=== PATIENT | male | born 1975 | race Caucasian/White ===

== ENCOUNTER → 2019-11-17 07:15 | Outpatient (CLI) | payer OTHER, SELFPAY ==
[2019-11-17 07:56] LABS: Basophils # 0.1 K/mm3 (0-0.2); Basophils % 1.2 % (0.1-2.0); Eosinophils # 0.4 K/mm3 (0.0-0.4); Eosinophils % 4.2 % (0.1-12.0); Hematocrit 50.1 % (42.0-52.0); Hemoglobin 16.5 g/dL (14.1-18.0); Lymphocytes # 2.5 K/mm3 (0.7-4.5); Lymphocytes % 26.9 % (10-50); Mean Corpuscular Hemoglobin 28.2 pg (27.0-31.2); Mean Corpuscular Volume 85.3 fl (80-94); Mean Platelet Volume 9.2 fl (7.4-10.4); Monocytes # 0.4 K/mm3 (0.1-1.0); Neutrophils # 5.9 K/mm3 (1.8-7.8); Neutrophils % 63.6 % (37.0-80.0); Platelet Count 241 K/mm3 (142-424); Red Blood Count 5.87 M/mm3 (4.60-6.20); Red Cell Distribution Width 13.8 % (11.5-17.5); White Blood Count 9.3 K/mm3 (4.8-10.8)
[2019-11-17 10:24] LABS: Chloride 107 mmol/L (98-107); Potassium 4.6 mmoL/L (3.5-5.1); Sodium 139 mmol/L (136-145)
[2019-11-17 10:26] LABS: Alanine Aminotransferase 139 U/L (12-78); Aspartate Amino Transferase 80 U/L (17-59); Blood Urea Nitrogen 13 mg/dl (9-20); Estimated Glomerular Filt Rate 93 ml/min (>60); GFR (African American) 112 ML/MIN (>60)
[2019-11-17 10:27] LABS: Albumin/Globulin Ratio 1.3 (1.1-1.8); Alkaline Phosphatase 106 U/L (38-126); Anion Gap 12.6 mEq/L (5-15); Bilirubin,Total 0.4 mg/dl (0.2-1.3); Calcium 9.5 mg/dl (8.4-10.2); Carbon Dioxide 24 mmol/L (22.0-30.0); Cholesterol 223 mg/dl (140-200); Globulin 3.2 g/dL (1.3-3.2); Glucose 109 mg/dl (74-100); HDL Cholesterol 28 mg/dl (40-60); Total Protein,Serum 7.2 g/dl (6.3-8.2); Triglycerides 110 mg/dl (30-150); VLDL Cholesterol 22 mg/dL (0-40)
[2019-11-17 10:38] LABS: Direct LDL Cholesterol 186.51 mg/dL (100-129)
[2019-11-17 10:57] LABS: Thyroid Stimulating Hormone 3.47 uIU/mL (0.465-4.68)
[2019-11-18 17:42] LABS: Vitamin B12 728 pg/mL (232-1245)
[2019-11-18 17:49] LABS: Hep A Ab, IgM Negative (Negative); Hepatitis B Core Antibody IgM Negative (Negative); Hepatitis B Surface Antigen Negative (Negative)
[2019-11-19 10:03] LABS: Hepatitis C Antibody >11.0 s/co ratio (0.0-0.9)
== END ==
PROVIDERS: Visit Provider Internal Medicine Adolescent Medicine
DX: Z00.00 Encounter for general adult medical examination without abnormal findings (principal); R06.09 Other forms of dyspnea
CPT/HCPCS: 36415; 80053; 80061; 80074; 82607; 84443; 85025

== ENCOUNTER 2020-02-25 17:05 | Emergency (ER) | payer OTHER, SELFPAY ==
[2020-02-25 17:13] VITALS: BP 132/84; PULSE 96; RESP 20; TEMP 37.1; O2SAT 96; BMI 43.4
--- NOTE | 2020-02-25 18:02 | HMH.EDGENADL ---
ED Disposition Clinical Impression: Abscess Cellulitis Qualifiers: Site of cellulitis: trunk Site of cellulitis of trunk: groin Qualified Code(s): L03.314 - Cellulitis of groin Disposition: Home, Self-Care Condition on Discharge: Good Instructions: Cellulitis, Boil Prescriptions: Sulfamethoxazole/Trimethoprim [Bactrim DS tablet] 1 each PO BID 5 Days #10 tab Transmission Status: Received by [id number] cephALEXin [Keflex 500mg Cap] 500 mg PO Q6H 5 Days #20 cap Transmission Status: Received by [id number] Referrals: Richar Fonseca MD [Primary Care Provider] - - Critical Care Critical Care Time: No Attestation: On 02/25/20, the high probability of a clinically significant, sudden or life threatening deterioration of the following system(s) required my full and direct attention, intervention and personal management. The time I documented below is in addition to time spent performing reported procedures but includes the following listed in this critical care notation. Medical Decision Making - David Inquiry Pt receiving controlled substance: No David was queried for this patient: No Vital Signs: 02/25/20 17:13 Temperature 98.7 F Temperature Source Oral Pulse Rate [Right Radial] 96 H Respiratory Rate 20 Blood Pressure [Right Arm] 132/84 Blood Pressure Mean [Right Arm] 100 Blood Pressure Source [Right Arm] Automatic Cuff Blood Pressure Position [Right Arm] Standing 02 Sat by Pulse Oximetry 96 Oxygen Delivery Method Room Air Orders (Tests/Meds): ED MEDICATIONS Discontinued Medications Generic Name Dose Route Start Last Admin Trade Name Freq PRN Reason Stop Dose Admin Cephalexin HCl 500 mg 02/25/20 18:01 02/25/20 18:16 Cephalexin 500mg Capsule PO 02/25/20 18:02 500 mg ONCE ONE Administration Protocol Trimethoprim/Sulfamethoxazole 1 each 02/25/20 18:01 02/25/20 18:16 Bactrim Ds Tablet PO 02/25/20 18:02 1 each ONCE ONE Administration Protocol Medical Decision Narrative: In summary patient is a well-appearing 44-year-old male with a past medical history of recurrent abscesses to his inguinal area, presenting for evaluation of a repeat abscess. His vital signs are within normal limits. He is afebrile. On exam to patient's right inguinal area there is a superficial abscess no surrounding cellulitis. Is tender on palpation. It is actively draining bloody fluid. She has no systemic symptoms. Incision and drainage performed at bedside. Given oral Keflex, and Bactrim for treatment. Discharged with prescriptions for 5 days of oral Keflex, and 5 days of oral Bactrim. General Adult HPI - General Chief complaint: Skin/Abscess/Foreign Body Stated complaint: sore at belt line Time Seen by Provider: 02/25/20 17:20 Mode of Arrival: Ambulatory Limitations: No Limitations Description of Symptoms (Recalled from ER Triage Doc. by RN): PT C/O AN OPEN, DRAINING, SORE AREA IN PUBIC REGION. PT REPORTS HX OF MRSA, I&D AND PACKING. - History of Present Illness HPI narrative: 44-year-old male with a past medical history of recurrent abscesses to his groin area, who presents the emergency department for another abscess. States he noticed this yesterday, and it began draining today. He denies any recent fevers, chills, nausea, vomiting, chest pain, shortness of breath, or abdominal pain at this time. Patient only complains of pain localized to the abscess. - Related Data Previous Rx's Medication Instructions Recorded clindamycin HCL [Clindamycin HCl 300 mg PO Q6 7 Days #28 cap 06/18/19 300mg Cap] Sulfamethoxazole/Trimethoprim 1 each PO BID 5 Days #10 tab 02/25/20 [Bactrim DS tablet] cephALEXin [Keflex 500mg Cap] 500 mg PO Q6H 5 Days #20 cap 02/25/20 Allergies Allergy/AdvReac Type Severity Reaction Status Date / Time No Known Allergies Allergy Verified 09/20/18 16:47 [facility] History - Hepatitis A Screen Drug use histor
[2020-02-25 18:17] VITALS: BP 123/87; PULSE 80; RESP 20; TEMP 36.6; O2SAT 98
== END 2020-02-25 18:20 | disposition home or self-care (01) ==
PROVIDERS: Emergency Provider Emergency Medicine; PCP Internal Medicine Adolescent Medicine
DX: L02.211 Cutaneous abscess of abdominal wall (principal); F17.210 Nicotine dependence, cigarettes, uncomplicated
CPT/HCPCS: 10060; 96372; 99282

== ENCOUNTER 2020-03-22 13:38 | Emergency (ER) | payer OTHER, SELFPAY ==
[2020-03-22 13:38] VITALS: BP 149/97; PULSE 81; RESP 16; TEMP 36.9; O2SAT 98; BMI 40.6
--- NOTE | 2020-03-22 14:05 | HMH.EDWNDL ---
ED Disposition Clinical Impression: Abrasion, Abscess Disposition: Home, Self-Care Condition on Discharge: Good Instructions: DI for Wound Infection Prescriptions: clindamycin HCL [Clindamycin HCl 300mg Cap] 300 mg PO Q6 10 Days #40 cap Transmission Status: Pending to [id number] Referrals: Richar Fonseca MD [Primary Care Provider] - - Critical Care Critical Care Time: No Attestation: On 03/22/20, the high probability of a clinically significant, sudden or life threatening deterioration of the following system(s) required my full and direct attention, intervention and personal management. The time I documented below is in addition to time spent performing reported procedures but includes the following listed in this critical care notation. Medical Decision Making - Medical Records Medical records reviewed: Yes: I reviewed the patient's medical records. - David Inquiry Pt receiving controlled substance: No Vital Signs: 03/22/20 13:38 Temperature 98.4 F Temperature Source Oral Pulse Rate [Left Radial] 81 Respiratory Rate 16 Blood Pressure [Right Arm] 149/97 H Blood Pressure Mean [Right Arm] 114 Blood Pressure Position [Right Arm] Sitting 02 Sat by Pulse Oximetry 98 Oxygen Delivery Method Room Air - Lab Data Lab results reviewed: Yes: I reviewed the patient's lab results. Orders (Tests/Meds): ED MEDICATIONS Generic Name Dose Route Start Last Admin Trade Name Natalya PRN Reason Stop Dose Admin Clindamycin Phosphate 600 mg 03/22/20 13:58 03/22/20 14:00 Clindamycin 900mg/6ml Vial IM 03/22/20 15:01 600 mg ONCE ONE Administration Protocol Wound/Laceration HPI - General Chief Complaint: Wound/Laceration Stated Complaint: sore on left leg Time Seen by Provider: 03/22/20 14:05 Mode of Arrival: Ambulatory Source of Information: Patient Limitations: No Limitations Description of Symptoms (Recalled from ER Triage Doc. by RN): to ed per pvt car with c/o abscess to lt inner thigh x 3 days. pt states I stuck a pin in it this morning, but nothing came out denies fever, chills, nausea, vomiting. - History of Present Illness HPI narrative: 44-year-old male presents with a abscess on the inner part of his left thigh. He states it came up a couple of days ago and is progressively getting worse as the day has progressed. He does complain of some pain he states the pain is 4 out of 10 and sharp and pressure-like sensation. He states there are no alleviating or exacerbating factors. Patient denies any fever shakes or chills. HPIPatient denies any recent cough or shortness of breath, patient denies any sore throat or headache, patient denies any loss of taste or smell, patient denies any malaise or fatigue, patient denies any abdominal pain nausea vomiting or diarrhea. - Related Data Previous Rx's Medication Instructions Recorded clindamycin HCL [Clindamycin HCl 300 mg PO Q6 7 Days #28 cap 06/18/19 300mg Cap] Sulfamethoxazole/Trimethoprim 1 each PO BID 5 Days #10 tab 02/25/20 [Bactrim DS tablet] cephALEXin [Keflex 500mg Cap] 500 mg PO Q6H 5 Days #20 cap 02/25/20 clindamycin HCL [Clindamycin HCl 300 mg PO Q6 10 Days #40 cap 03/22/20 300mg Cap] Allergies Allergy/AdvReac Type Severity Reaction Status Date / Time No Known Allergies Allergy Verified 09/20/18 16:47 [facility] History - Hepatitis A Screen Drug use history?: No High risk sexual behaviors?: No History of sexually transmitted infection?: No Currently employed?: No Childcare worker?: No Do you have indoor plumbing?: Yes Do you have electricity?: Yes Attestation statement:: This patient has been screened for Hepatitis A risk factors. I have reviewed the patient's past medical history: Yes Medical History: Reports:: MRSA Denies:: Cancer, Diabetes Mellitus Type 1, Diabetes Mellitus Type 2 Laterality Cases: Bilateral: Myringotomy (Ear Tubes) Amputation: No Fractures: No
[2020-03-22 14:21] VITALS: BP 138/93; PULSE 90; RESP 18; TEMP 36.9; O2SAT 94
== END 2020-03-22 14:22 | disposition home or self-care (01) ==
PROVIDERS: Emergency Provider Family Medicine; PCP Internal Medicine Adolescent Medicine
DX: L02.416 Cutaneous abscess of left lower limb (principal); F17.210 Nicotine dependence, cigarettes, uncomplicated; F19.90 Other psychoactive substance use, unspecified, uncomplicated
CPT/HCPCS: 96372; 99281

== ENCOUNTER 2020-10-06 18:20 | Emergency (ER) | payer OTHER, SELFPAY ==
[2020-10-06 18:40] VITALS: BP 148/97; PULSE 98; RESP 20; TEMP 36.7; O2SAT 98; BMI 45.9
--- NOTE | 2020-10-06 19:24 | HMH.EDUTC ---
[facility] [place] Clinical Impression: Laceration Disposition: Home, Self-Care Condition on Discharge: Good Instructions: How to Care for a Laceration After Repair, DI for Laceration Repair, DI for Laceration Repair -- Simple Additional Instructions: Suture instructions: You have required stitches today. Please read the following instructions so you know how to care for them: 1. Keep wound area dry for the first 24 hours. 2 May clean gently with mild soap and water, after 48 hours to prevent crusting over suture knots. 3. You may shower if your provider gives permission but do not take a bath until the skin is healed.. 4. Never leave a wet dressing or Band-Aid on your stitches as this allows bacteria to reach the area and may cause infection. Band-aids can cause the wound to sweat and not recommended to wear for long periods of time Watch for signs of infection: Increasing redness, tenderness or warmth around the suture site Unusual swelling around the site Appearance of pus around each suture or any red streaks Fever If you develop any of the above signs or symptoms of infection, Follow up with Family Physician immediately 5. Suture removal in __10-12__days 6. Return to [facility] or follow up with family doctor for removal. This can be done by any medical provider during regular hours on Tuesday through Tuesday, by appointment. Referrals: Richar Fonseca MD [Primary Care Provider] - As needed Time of Disposition: 19:55 Medical Decision Making - David Inquiry Pt receiving controlled substance: No David was queried for this patient: No Vital Signs: 10/06/20 18:40 10/06/20 19:51 Temperature 98.1 F 98.1 F Temperature Source Oral Pulse Rate 98 H Pulse Rate [Right Brachial] 98 H Respiratory Rate 20 20 Blood Pressure 148/97 H Blood Pressure [Right Arm] 148/97 H Blood Pressure Mean [Right Arm] 114 Blood Pressure Source [Right Arm] Automatic Cuff Blood Pressure Position [Right Arm] Sitting 02 Sat by Pulse Oximetry 98 Oxygen Delivery Method Room Air Orders (Tests/Meds): ED MEDICATIONS Discontinued Medications Generic Name Dose Route Start Last Admin Trade Name Freq PRN Reason Stop Dose Admin Tetanus/Reduced Diphtheria/Acell Pertussis 0.5 ml 10/06/20 19:57 10/06/20 20:00 Tet/Diphth/Pert-Adult 0.5ml Syringe IM 10/06/20 19:58 0.5 ml .ONCE ONE Administration [facility] [place] - General Stated complaint: Cut right finger Time Seen by Provider: 10/06/20 19:24 Mode of Arrival: Ambulatory Source of Information: Patient Limitations: No Limitations Description of Symptoms (Recalled from Triage Doc. by RN): C/O LACERATION TO RIGHT RING FINGER. HE STATES HE WAS CUTTING A POTATO WITH A SLICER WITHOUT USING THE POTATO BANSAL AND CUT HIS FINGER TODAY HEENT Symptoms (Recalled from RN notes): No Resp Symptoms (Recalled from RN notes): No Skin Symptoms (Recalled from RN notes): No MS Symptoms (Recalled from RN notes): No Functional Status (Recalled from RN notes): WNL - History of Present Illness Provider Complaint: Patient states that he was using a potato slicer earlier this evening and cut the tip of his right ring finger States that he thought it would be ok but noticed it was flap like and looked like it needed stitches so he came in no active bleeding at this time unsure of last tetanus - Related Data Previous Rx's Medication Instructions Recorded clindamycin HCL [Clindamycin HCl 300 mg PO Q6 7 Days #28 cap 06/18/19 300mg Cap] Sulfamethoxazole/Trimethoprim 1 each PO BID 5 Days #10 tab 02/25/20 [Bactrim DS tablet] cephALEXin [Keflex 500mg Cap] 500 mg PO Q6H 5 Days #20 cap 02/25/20 clindamycin HCL [Clindamycin HCl 300 mg PO Q6 10 Days #40 cap 03/22/20 300mg Cap] Allergies Allergy/AdvReac Type Severity Reaction Status Date / Time No Known Allergies Allergy Verified 09/20/18 16:47 - Worker's Comp Is this a Worker's Comp case?: No [facility] History - Hepatitis A S
[2020-10-06 19:51] VITALS: BP 148/97; PULSE 98; RESP 20; TEMP 36.7; O2SAT 98
== END 2020-10-06 20:09 | disposition home or self-care (01) ==
PROVIDERS: Emergency Provider Nurse Practitioner; PCP Internal Medicine Adolescent Medicine
DX: S61.214A Laceration without foreign body of right ring finger without damage to nail, initial encounter (principal); W26.9XXA Contact with unspecified sharp object(s), initial encounter; Y92.010 Kitchen of single-family (private) house as the place of occurrence of the external cause; Z23 Encounter for immunization
CPT/HCPCS: 12001; 90471; 90715; 99202; G0463

== ENCOUNTER 2020-10-19 09:49 | Emergency (ER) | payer OTHER, SELFPAY ==
[2020-10-19 10:00] VITALS: BP 138/72; PULSE 88; RESP 18; TEMP 36.7; O2SAT 98; BMI 38.0
[2020-10-19 10:05] VITALS: BP 138/72; PULSE 88; RESP 18; TEMP 36.7; O2SAT 98
== END 2020-10-19 10:07 | disposition home or self-care (01) ==
PROVIDERS: Emergency Provider Nurse Practitioner Family; PCP Internal Medicine Adolescent Medicine
DX: S61.214D Laceration without foreign body of right ring finger without damage to nail, subsequent encounter (principal)

== ENCOUNTER 2020-11-23 18:38 | Observation (INO) | payer OTHER, SELFPAY ==
[2020-11-23 18:40] VITALS: BP 168/108; PULSE 84; RESP 20; TEMP 36.7; O2SAT 98; BMI 47.9
--- NOTE | 2020-11-23 18:44 | HMH.EDGENADL ---
ED Disposition Clinical Impression: Epigastric pain Disposition: Still a Patient Condition on Discharge: Good Referrals: Richar Fonseca MD [Primary Care Provider] - - Critical Care Critical Care Time: No Attestation: On 11/23/20, the high probability of a clinically significant, sudden or life threatening deterioration of the following system(s) required my full and direct attention, intervention and personal management. The time I documented below is in addition to time spent performing reported procedures but includes the following listed in this critical care notation. Medical Decision Making - Medical Records Medical records reviewed: Yes: I reviewed the patient's medical records. - David Inquiry Pt receiving controlled substance: No Vital Signs: 11/23/20 18:40 Temperature 98.1 F Temperature Source Oral Pulse Rate [Left Radial] 84 Respiratory Rate 20 Blood Pressure [Right Arm] 168/108 H Blood Pressure Mean [Right Arm] 128 Blood Pressure Source [Right Arm] Automatic Cuff Blood Pressure Position [Right Arm] Sitting 02 Sat by Pulse Oximetry 98 Oxygen Delivery Method Room Air - Lab Data Lab Results 11/23/20 18:50: Urine Color Yellow, Urine Appearance Clear, Urine pH 6.5, Ur Specific [place] 1.025, Urine Protein Negative, Urine Glucose (UA) Negative, Urine Ketones Negative, Urine Blood Negative, Urine Nitrate Negative, Urine Bilirubin Negative, Urine Urobilinogen 0.2, Ur Leukocyte Esterase Negative, Amorphous Sediment Trace 11/23/20 18:59: WBC 12.9 H, RBC 5.79, Hgb 16.4, Hct 49.8, MCV 86.0, MCH 28.4, MCHC 33.0, RDW 14.2, Plt Count 226, MPV 8.2, Neut % (Auto) 63.1, Lymph % (Auto) 28.3, [place] % (Auto) 4.3, Eos % (Auto) 3.1, Baso % (Auto) 1.2, Neut # (Auto) 8.1 H, Lymph # (Auto) 3.7, [place] # (Auto) 0.6, Eos # (Auto) 0.4, Baso # (Auto) 0.2 11/23/20 18:59: Sodium 141, Potassium 4.3, Chloride 107, Carbon Dioxide 28, Anion Gap 10.3, BUN 16, Creatinine 1.20, Estimated Creat Clear 79, Estimated GFR 66, Est GFR ( Amer) 80, Glucose 94, Calcium 9.7, Total Bilirubin 0.5, AST 87 H, ALT 150 H, Alkaline Phosphatase 114, Troponin I < 0.01, Total Protein 8.1, Albumin 4.4, Globulin 3.7 H, Albumin/Globulin Ratio 1.2 Result diagrams: 11/23/20 18:59 11/23/20 18:59 Orders (Tests/Meds): ED MEDICATIONS Discontinued Medications Generic Name Dose Route Start Last Admin Trade Name Natalya PRN Reason Stop Dose Admin Belladonna Alkaloids 60 ml 11/23/20 18:58 11/23/20 19:05 Gi Cocktail 60ml Udc PO 11/23/20 18:59 60 ml ONCE ONE Administration Dicyclomine HCl 20 mg 11/23/20 20:04 11/23/20 20:07 Dicyclomine 10mg Capsule PO 11/23/20 20:05 20 mg ONCE ONE Administration ORDERS Category Date Time Status Troponin I Q3H Lab 11/23/20 22:00 Ordered Troponin I Q3H Lab 11/24/20 01:00 Ordered - ECG Data Tracing #1 I reviewed this ECG and interpreted as documented below: EKG demonstrates sinus rhythm at a rate of 77 bpm; no acute ST elevation/depression; no biphasic T waves; [place] normal Medical Decision Narrative: Patient is a 45-year-old male present with epigastric pain. EKG obtained immediately upon arrival demonstrates no acute ST elevation/depression. ACS also on the differential so troponin will be obtained. Other differential diagnosis include duodenitis versus gastritis versus pancreatitis versus hepatitis. Liver function test will be obtained to ensure no flareup of patient's underlying liver disease. Lipase also ordered. Urine also obtained as pyelonephritis and cystitis on the differential. GI cocktail ordered. Patient with benign, soft abdominal exam so no CT imaging ordered at this time. Other basic lab work also obtained to ensure no renal insufficiency/metabolic derangement or hematologic derangement. White count mildly elevated 12.9. Lipase within normal limits. For set of cardiac enzyme testing unremarkable. No significant relief after GI cocktail. Bentyl ordered.
--- NOTE | 2020-11-23 18:55 | ECG_ITS ---
APPROVED REPORT Exam: Resting ECG HR:77 bpm ECG Measurements Heart Rate 77 AXES IL 144 P 44 QRSd 90 QRS 35 QT 386 T 63 QTc 436 Conclusion Normal sinus rhythm Normal ECG Electronically signed by : Richar Fonseca, 11/24/2020 06:57:43
[2020-11-23 19:04] LABS: Microscopic, Urine URINE MICROSCOPIC (MICROSCOPIC)
[2020-11-23 19:05] LABS: Basophils # 0.2 K/mm3 (0-0.2); Basophils % 1.2 % (0.1-2.0); Eosinophils # 0.4 K/mm3 (0.0-0.4); Eosinophils % 3.1 % (0.1-12.0); Hematocrit 49.8 % (42.0-52.0); Hemoglobin 16.4 g/dL (14.1-18.0); Lymphocytes # 3.7 K/mm3 (0.7-4.5); Lymphocytes % 28.3 % (10-50); Mean Corpuscular Hemoglobin 28.4 pg (27.0-31.2); Mean Platelet Volume 8.2 fl (7.4-10.4); Monocytes # 0.6 K/mm3 (0.1-1.0); Monocytes % 4.3 % (1.7-9.3); Neutrophils # 8.1 K/mm3 (1.8-7.8); Neutrophils % 63.1 % (37.0-80.0); Platelet Count 226 K/mm3 (142-424); Red Blood Count 5.79 M/mm3 (4.60-6.20); Red Cell Distribution Width 14.2 % (11.5-17.5); White Blood Count 12.9 K/mm3 (4.8-10.8)
[2020-11-23 19:10] LABS: Appearance,Urine CLEAR (Clear); Bilirubin,Urine Negative (Negative); Blood, Urine Negative (Negative); Color,Urine YELLOW (Yellow); Glucose,Urine (UA) Negative (Negative); Ketones,Urine Negative (Negative); Leukocyte Esterase,Urine Negative (Negative); Nitrate,Urine Negative (Negative); PH,Urine 6.5 (5.0-8.5); Protein,Urine Negative (Negative); Specific Gravity, Urine 1.025 (1.005-1.030); Urobilinogen,Urine 0.2 EU/dl (0.2)
[2020-11-23 19:11] LABS: Amorphous Sediment,Urine Trace /lpf
[2020-11-23 19:15] LABS: Alanine Aminotransferase 150 U/L (12-78); Albumin Level 4.4 g/dl (3.5-5.0); Albumin/Globulin Ratio 1.2 (1.1-1.8); Alkaline Phosphatase 114 U/L (38-126); Anion Gap 10.3 mEq/L (5-15); Aspartate Amino Transferase 87 U/L (17-59); Bilirubin,Total 0.5 mg/dl (0.2-1.3); Blood Urea Nitrogen 16 mg/dl (9-20); Calcium 9.7 mg/dl (8.4-10.2); Carbon Dioxide 28 mmol/L (22.0-30.0); Chloride 107 mmol/L (98-107); Creatinine Clearance Estimated 79 mL/min (50-200); Estimated Glomerular Filt Rate 66 ml/min (>60); GFR (African American) 80 ML/MIN (>60); Globulin 3.7 g/dL (1.3-3.2); Glucose 94 mg/dl (74-100); Potassium 4.3 mmoL/L (3.5-5.1); Sodium 141 mmol/L (136-145); Total Protein,Serum 8.1 g/dl (6.3-8.2)
[2020-11-23 19:27] LABS: Troponin I < 0.01 ng/ml (0.00-0.034)
--- NOTE | 2020-11-23 20:28 | CT_ITS ---
PROCEDURE: CT ABDOMEN PELVIS W CON CLINICAL INDICATION: epigastric pain COMPARISON: No exams were available for comparison TECHNIQUE: IV Contrast: 75ML Isovue 370 Oral Contrast None Axial images obtained with sagittal and coronal reformats. All CT scans at the facility use one or more dose reduction, viz: automated exposure control, ma/kV adjustment per patient size (including targeted exams where dose is matched to indication, i.e. head), or iterative reconstruction technique. FINDINGS: LOWER THORAX: No acute finding ABDOMEN & PELVIS: Unremarkable appearing liver and spleen. The gallbladder is distended measuring 12 by 4 cm. A 1.5 cm stone is present in the neck of the gallbladder. There is some minimal thickening of the gallbladder wall. These findings are suspicious for acute cholecystitis. Unremarkable appearing adrenal glands and pancreas. A 3 mm stone is present in the lower pole of the right kidney. No hydronephrosis. No ureteral calculi. Unremarkable appendix. There are few colonic diverticula but no evidence of diverticulitis. No intestinal obstruction or free air. There is a tiny umbilical hernia containing fat. No acute bony findings. There is a sclerotic focus within the left ilium medially and may be due to a bone island. There are few small inguinal lymph nodes. IMPRESSION: 1. Distended gallbladder with mild gallbladder wall thickening and a 1.5 cm stone in the neck of the gallbladder suspicious for acute cholecystitis. Ultrasound may confirm. 2. Right nephrolithiasis. Dictated by: Josh De La Vega MD 11/24/2020 06:37 Josh De La Vega MD in [place] 11/24/2020 06:37
[2020-11-23 20:58] LABS: Amylase 76 U/L (30-110); Lipase 138 U/L (23-300)
[2020-11-23 21:00] VITALS: BP 136/94; PULSE 63; RESP 17; O2SAT 99
[2020-11-23 21:03] LABS: C-Reactive Protein 11.6 mg/L (0-4)
[2020-11-23 21:17] LABS: Erythrocyte Sedimentation Rate 23 mm/hr (0-15); Procalcitonin 0.086 ng/mL (0.0-2.0)
[2020-11-24 00:37] VITALS: BP 134/88; PULSE 68; RESP 16; TEMP 36.7; O2SAT 99
--- NOTE | 2020-11-24 00:59 | PC.NURSE ---
patient up to floor via wheelchair.
[2020-11-24 01:00] VITALS: BP 149/88; PULSE 68; RESP 16; TEMP 36.5; O2SAT 100; BMI 44.4
[2020-11-24 01:26] VITALS: PULSE 68; RESP 16; O2SAT 100
[2020-11-24 03:59] VITALS: BP 138/85; PULSE 66; RESP 16; TEMP 36.6; O2SAT 97
[2020-11-24 05:02] VITALS: BMI 44.4
--- NOTE | 2020-11-24 05:08 | PC.NURSE ---
pt is AXOX4, rested well t/o shift, has not required any PRN pain medication, abdomen is tender with active bowel sounds noted, ambulating independently in room, remains room air
[2020-11-24 06:21] LABS: Alanine Aminotransferase 139 U/L (12-78); Albumin Level 4.1 g/dl (3.5-5.0); Albumin/Globulin Ratio 1.2 (1.1-1.8); Alkaline Phosphatase 118 U/L (38-126); Anion Gap 10.2 mEq/L (5-15); Aspartate Amino Transferase 86 U/L (17-59); Bilirubin,Total 0.6 mg/dl (0.2-1.3); Blood Urea Nitrogen 12 mg/dl (9-20); Calcium 9.2 mg/dl (8.4-10.2); Carbon Dioxide 23 mmol/L (22.0-30.0); Chloride 108 mmol/L (98-107); Creatinine Clearance Estimated 115 mL/min (50-200); Estimated Glomerular Filt Rate 106 ml/min (>60); GFR (African American) 128 ML/MIN (>60); Globulin 3.4 g/dL (1.3-3.2); Glucose 114 mg/dl (74-100); Potassium 4.2 mmoL/L (3.5-5.1); Sodium 137 mmol/L (136-145); Total Protein,Serum 7.5 g/dl (6.3-8.2)
[2020-11-24 06:31] LABS: Basophils # 0.1 K/mm3 (0-0.2); Basophils % 1.1 % (0.1-2.0); Eosinophils # 0.4 K/mm3 (0.0-0.4); Eosinophils % 3.6 % (0.1-12.0); Hematocrit 47.6 % (42.0-52.0); Hemoglobin 15.8 g/dL (14.1-18.0); Lymphocytes # 2.8 K/mm3 (0.7-4.5); Lymphocytes % 26.6 % (10-50); Mean Corpuscular HGB Conc 33.2 g/dL (31.8-35.4); Mean Corpuscular Hemoglobin 28.2 pg (27.0-31.2); Mean Corpuscular Volume 85.1 fl (80-94); Mean Platelet Volume 8.5 fl (7.4-10.4); Monocytes # 0.5 K/mm3 (0.1-1.0); Monocytes % 5.1 % (1.7-9.3); Neutrophils # 6.7 K/mm3 (1.8-7.8); Neutrophils % 63.6 % (37.0-80.0); Platelet Count 216 K/mm3 (142-424); Red Blood Count 5.59 M/mm3 (4.60-6.20); Red Cell Distribution Width 14.4 % (11.5-17.5); White Blood Count 10.5 K/mm3 (4.8-10.8)
--- NOTE | 2020-11-24 07:16 | HMH.PHAVTE ---
[facility] Pharmacy VTE Monitoring - Patient Demographics Admission date: 11/23/20 Report Date: 11/24/20 Time: 07:16 Allergies/Adverse Reactions: Patient Allergies No Known Allergies Allergy (Verified 11/24/20 01:04) Height: 1.75 m Weight: 136.078 kg Patient Problems: Current Active Problems Epigastric pain (Acute) - VTE Risk Labs: VTE Related Lab Results Hgb 15.8 g/dL (14.1-18.0) 11/24/20 05:54 Hct 47.6 % (42.0-52.0) 11/24/20 05:54 Plt Count 216 K/mm3 (142-424) 11/24/20 05:54 BUN 12 mg/dl (9-20) 11/24/20 05:54 Creatinine 0.80 mg/dl (0.66-1.25) D 11/24/20 05:54 Estimated Creat Clear 115 mL/min (50-200) 11/24/20 05:54 Was VTE Risk Assessment Performed: Yes VTE Score: 4 VTE Risk Level: Low Risk Clinical Trial Participant: No - Prophylaxis VTE Prophylaxis Ordered?: Yes Types of VTE Prophylaxis: TEDS Knee High
[2020-11-24 08:00] VITALS: BP 136/76; PULSE 66; RESP 18; TEMP 36.9; O2SAT 100
--- NOTE | 2020-11-24 08:00 | US_ITS ---
PROCEDURE: US GALLBLADDER CLINICAL INDICATION: abd pain/abn ct Epigastric, upper quadrant pain COMPARISON: CT CT ABDOMEN PELVIS W CON from 11/23/2020 FINDINGS: Pancreas: Unremarkable/Not well seen Liver: Unremarkable. There is appropriate direction of blood flow within a non dilated portal vein. Right kidney: Unremarkable appearing. No hydronephrosis. Gallbladder: There is a 2 cm stone in neck gallbladder with mild distention of the gallbladder 4 cm. No pericholecystic fluid, or biliary dilatation is evident. The common bile duct is 5 mm. Gallbladder wall is slightly thickened at 5 mm. IMPRESSION: Cholelithiasis with distended gallbladder and mild gallbladder wall thickening. Dictated by: Josh De La Vega MD 11/24/2020 10:03 Josh De La Vega MD in [facility] 11/24/2020 10:03
--- NOTE | 2020-11-24 08:17 | HMH.HP ---
*Admission Date: 11/23/20 *Chief complaint: Right upper quadrant pain *History of present illness: 45-year-old white male with obesity but otherwise minimal medical history who presented to the emergency department with right upper quadrant pain after eating. ER work-up with minimally elevated lipase but otherwise unremarkable except for a CT scan showing gallbladder neck stone. Admitted to hospital for pain control, n.p.o. status and surgical consultation. [facility] History I have reviewed the patient's past medical history: Yes Medical History: Reports:: MRSA Denies:: Cancer, Diabetes Mellitus Type 1, Diabetes Mellitus Type 2 *Have you ever received a pneumonia vaccine?: No *Have you received a flu vaccine this season?: No Laterality Cases: Bilateral: Myringotomy (Ear Tubes) Amputation: No Fractures: No - *Social History Last grade of school completed: GED Smoking Status: Current every day smoker Tobacco Type: cigarettes # Packs/Day (cigarettes): 1 Alcohol Intake: never Substance Use Type: marijuana, crack/cocaine, heroin, opiates, methamphetamine *Occupational Status:: employed Housing: house Household Members: other *Travel in the last 8 weeks: None Family Hx:: Cancer, Diabetes, Heart Attack, Hypertension, Alcoholism Review of Systems - Review of Systems Review of systems:: pertinent systems reviewed and negative unless documented below Meds Home Medications Medication Instructions Recorded Confirmed Type No Known Home Medications 11/23/20 11/24/20 History Allergies Allergy/AdvReac Type Severity Reaction Status Date / Time No Known Allergies Allergy Verified 11/24/20 01:04 Exam Vital signs and Labs for Last 24 Hours: Temp Pulse Resp BP Pulse Ox 98.4 F 66 18 136/76 100 11/24/20 08:00 11/24/20 08:00 11/24/20 08:00 11/24/20 08:00 11/24/20 08:00 Laboratory Results - last 24 hr 11/23/20 18:50: Urine Color Yellow, Urine Appearance Clear, Urine pH 6.5, Ur Specific [place] 1.025, Urine Protein Negative, Urine Glucose (UA) Negative, Urine Ketones Negative, Urine Blood Negative, Urine Nitrate Negative, Urine Bilirubin Negative, Urine Urobilinogen 0.2, Ur Leukocyte Esterase Negative, Amorphous Sediment Trace 11/23/20 18:59: WBC 12.9 H, RBC 5.79, Hgb 16.4, Hct 49.8, MCV 86.0, MCH 28.4, MCHC 33.0, RDW 14.2, Plt Count 226, MPV 8.2, Neut % (Auto) 63.1, Lymph % (Auto) 28.3, [place] % (Auto) 4.3, Eos % (Auto) 3.1, Baso % (Auto) 1.2, Neut # (Auto) 8.1 H, Lymph # (Auto) 3.7, [place] # (Auto) 0.6, Eos # (Auto) 0.4, Baso # (Auto) 0.2 11/23/20 18:59: Sodium 141, Potassium 4.3, Chloride 107, Carbon Dioxide 28, Anion Gap 10.3, BUN 16, Creatinine 1.20, Estimated Creat Clear 79, Estimated GFR 66, Est GFR ( Amer) 80, Glucose 94, Calcium 9.7, Total Bilirubin 0.5, AST 87 H, ALT 150 H, Alkaline Phosphatase 114, Troponin I < 0.01, Total Protein 8.1, Albumin 4.4, Globulin 3.7 H, Albumin/Globulin Ratio 1.2 11/23/20 18:59: C-Reactive Protein 11.6 H, Amylase 76, Lipase 138, Procalcitonin 0.086 11/23/20 18:59: ESR 23 H 11/24/20 05:54: WBC 10.5, RBC 5.59, Hgb 15.8, Hct 47.6, MCV 85.1, MCH 28.2, MCHC 33.2, RDW 14.4, Plt Count 216, MPV 8.5, Neut % (Auto) 63.6, Lymph % (Auto) 26.6, [place] % (Auto) 5.1, Eos % (Auto) 3.6, Baso % (Auto) 1.1, Neut # (Auto) 6.7, Lymph # (Auto) 2.8, [place] # (Auto) 0.5, Eos # (Auto) 0.4, Baso # (Auto) 0.1 11/24/20 05:54: Sodium 137, Potassium 4.2, Chloride 108 H, Carbon Dioxide 23, Anion Gap 10.2, BUN 12, Creatinine 0.80 D, Estimated Creat Clear 115, Estimated GFR 106, Est GFR ( Amer) 128 D, Glucose 114 H D, Calcium 9.2, Total Bilirubin 0.6, AST 86 H, ALT 139 H, Alkaline Phosphatase 118, Total Protein 7.5, Albumin 4.1, Globulin 3.4 H, Albumin/Globulin Ratio 1.2 I & O for Last 24 hours: Intake & Output 11/21/20 11/22/20 11/23/20 11/24/20 11:59 11:59 11:59 11:59 Intake Total 383 / 383 Balance 383 / 383 Weight 300 lb Microbiology Reports for the Last 24 Hours: Microbiology 11/23/20
--- NOTE | 2020-11-24 08:33 | HMH.GSCON ---
*Admission Date: 11/23/20 *Reason for consult:: Gallbladder *History of present illness: Patient is a 45-year-old male with known diagnosis of hepatitis C secondary to previous IV drug use. He states that he has been clean for over 2 years. He was in his usual state of health until a couple of days ago when he developed acute onset of epigastric pain. This became more severe yesterday and he presented to the emergency department yesterday evening. He underwent evaluation which included CT scan revealing findings of gallbladder wall thickening with stone in the neck of the gallbladder. He does have somewhat elevated transaminases which is consistent with his baseline. His symptoms have improved this morning. Review of Systems - Review of Systems Review of systems:: pertinent systems reviewed and negative unless documented below [facility] History I have reviewed the patient's past medical history: Yes Medical History: Reports:: MRSA Denies:: Cancer, Diabetes Mellitus Type 1, Diabetes Mellitus Type 2 *Have you ever received a pneumonia vaccine?: No *Have you received a flu vaccine this season?: No Laterality Cases: Bilateral: Myringotomy (Ear Tubes) Amputation: No Fractures: No - *Social History Last grade of school completed: GED Smoking Status: Current every day smoker Tobacco Type: cigarettes # Packs/Day (cigarettes): 1 Alcohol Intake: never Substance Use Type: marijuana, crack/cocaine, heroin, opiates, methamphetamine *Occupational Status:: employed Housing: house Household Members: other *Travel in the last 8 weeks: None Family Hx:: Cancer, Diabetes, Heart Attack, Hypertension, Alcoholism Meds Home Medications Medication Instructions Recorded Confirmed Type No Known Home Medications 11/23/20 11/24/20 History Allergies Allergy/AdvReac Type Severity Reaction Status Date / Time No Known Allergies Allergy Verified 11/24/20 01:04 Exam Vital signs and Labs for Last 24 Hours: Temp Pulse Resp BP Pulse Ox 98.4 F 66 18 136/76 100 11/24/20 08:00 11/24/20 08:00 11/24/20 08:00 11/24/20 08:00 11/24/20 08:00 Laboratory Results - last 24 hr 11/23/20 18:50: Urine Color Yellow, Urine Appearance Clear, Urine pH 6.5, Ur Specific [place] 1.025, Urine Protein Negative, Urine Glucose (UA) Negative, Urine Ketones Negative, Urine Blood Negative, Urine Nitrate Negative, Urine Bilirubin Negative, Urine Urobilinogen 0.2, Ur Leukocyte Esterase Negative, Amorphous Sediment Trace 11/23/20 18:59: WBC 12.9 H, RBC 5.79, Hgb 16.4, Hct 49.8, MCV 86.0, MCH 28.4, MCHC 33.0, RDW 14.2, Plt Count 226, MPV 8.2, Neut % (Auto) 63.1, Lymph % (Auto) 28.3, Stone % (Auto) 4.3, Eos % (Auto) 3.1, Baso % (Auto) 1.2, Neut # (Auto) 8.1 H, Lymph # (Auto) 3.7, Stone # (Auto) 0.6, Eos # (Auto) 0.4, Baso # (Auto) 0.2 11/23/20 18:59: Sodium 141, Potassium 4.3, Chloride 107, Carbon Dioxide 28, Anion Gap 10.3, BUN 16, Creatinine 1.20, Estimated Creat Clear 79, Estimated GFR 66, Est GFR ( Amer) 80, Glucose 94, Calcium 9.7, Total Bilirubin 0.5, AST 87 H, ALT 150 H, Alkaline Phosphatase 114, Troponin I < 0.01, Total Protein 8.1, Albumin 4.4, Globulin 3.7 H, Albumin/Globulin Ratio 1.2 11/23/20 18:59: C-Reactive Protein 11.6 H, Amylase 76, Lipase 138, Procalcitonin 0.086 11/23/20 18:59: ESR 23 H 11/24/20 05:54: WBC 10.5, RBC 5.59, Hgb 15.8, Hct 47.6, MCV 85.1, MCH 28.2, MCHC 33.2, RDW 14.4, Plt Count 216, MPV 8.5, Neut % (Auto) 63.6, Lymph % (Auto) 26.6, Stone % (Auto) 5.1, Eos % (Auto) 3.6, Baso % (Auto) 1.1, Neut # (Auto) 6.7, Lymph # (Auto) 2.8, Stone # (Auto) 0.5, Eos # (Auto) 0.4, Baso # (Auto) 0.1 11/24/20 05:54: Sodium 137, Potassium 4.2, Chloride 108 H, Carbon Dioxide 23, Anion Gap 10.2, BUN 12, Creatinine 0.80 D, Estimated Creat Clear 115, Estimated GFR 106, Est GFR ( Amer) 128 D, Glucose 114 H D, Calcium 9.2, Total Bilirubin 0.6, AST 86 H, ALT 139 H, Alkaline Phosphatase 118, Total Protein 7.5, Albumin 4.1, Globulin 3.4 H, Albumin/Globulin Ratio
[2020-11-24 09:05] LABS: INR 0.94 (0.9-1.1); Prothrombin Time 11.1 seconds (9.4-11.8)
--- NOTE | 2020-11-24 12:03 | HMH.GSPN ---
Subjective Patient reports: feels better Narrative: Patient's gallbladder ultrasound revealed gallstone in the neck of the gallbladder. He is currently asymptomatic. Progress Note: A&P (1) Epigastric pain Status: Acute Assessment and Plan for All Diagnoses:: Likely had a acute biliary colic. I discussed the options with the patient. He had been tentatively scheduled for surgery for tomorrow. He wishes to be discharged and return as an outpatient for surgery tomorrow. This is to be arranged. Exam Vital signs and Labs for Last 24 Hours: Temp Pulse Resp BP Pulse Ox 98.4 F 66 18 136/76 100 11/24/20 08:00 11/24/20 08:00 11/24/20 08:00 11/24/20 08:00 11/24/20 08:00 Laboratory Results - last 24 hr 11/23/20 18:50: Urine Color Yellow, Urine Appearance Clear, Urine pH 6.5, Ur Specific [place] 1.025, Urine Protein Negative, Urine Glucose (UA) Negative, Urine Ketones Negative, Urine Blood Negative, Urine Nitrate Negative, Urine Bilirubin Negative, Urine Urobilinogen 0.2, Ur Leukocyte Esterase Negative, Amorphous Sediment Trace 11/23/20 18:59: WBC 12.9 H, RBC 5.79, Hgb 16.4, Hct 49.8, MCV 86.0, MCH 28.4, MCHC 33.0, RDW 14.2, Plt Count 226, MPV 8.2, Neut % (Auto) 63.1, Lymph % (Auto) 28.3, [place] % (Auto) 4.3, Eos % (Auto) 3.1, Baso % (Auto) 1.2, Neut # (Auto) 8.1 H, Lymph # (Auto) 3.7, [place] # (Auto) 0.6, Eos # (Auto) 0.4, Baso # (Auto) 0.2 11/23/20 18:59: Sodium 141, Potassium 4.3, Chloride 107, Carbon Dioxide 28, Anion Gap 10.3, BUN 16, Creatinine 1.20, Estimated Creat Clear 79, Estimated GFR 66, Est GFR ( Amer) 80, Glucose 94, Calcium 9.7, Total Bilirubin 0.5, AST 87 H, ALT 150 H, Alkaline Phosphatase 114, Troponin I < 0.01, Total Protein 8.1, Albumin 4.4, Globulin 3.7 H, Albumin/Globulin Ratio 1.2 11/23/20 18:59: C-Reactive Protein 11.6 H, Amylase 76, Lipase 138, Procalcitonin 0.086 11/23/20 18:59: ESR 23 H 11/24/20 05:54: WBC 10.5, RBC 5.59, Hgb 15.8, Hct 47.6, MCV 85.1, MCH 28.2, MCHC 33.2, RDW 14.4, Plt Count 216, MPV 8.5, Neut % (Auto) 63.6, Lymph % (Auto) 26.6, [place] % (Auto) 5.1, Eos % (Auto) 3.6, Baso % (Auto) 1.1, Neut # (Auto) 6.7, Lymph # (Auto) 2.8, [place] # (Auto) 0.5, Eos # (Auto) 0.4, Baso # (Auto) 0.1 11/24/20 05:54: Sodium 137, Potassium 4.2, Chloride 108 H, Carbon Dioxide 23, Anion Gap 10.2, BUN 12, Creatinine 0.80 D, Estimated Creat Clear 115, Estimated GFR 106, Est GFR ( Amer) 128 D, Glucose 114 H D, Calcium 9.2, Total Bilirubin 0.6, AST 86 H, ALT 139 H, Alkaline Phosphatase 118, Total Protein 7.5, Albumin 4.1, Globulin 3.4 H, Albumin/Globulin Ratio 1.2 11/24/20 08:20: PT 11.1, INR 0.94 I & O for Last 24 hours: Intake & Output 11/22/20 11/23/20 11/24/20 11/25/20 11:59 11:59 11:59 11:59 Intake Total 383 / 383 Balance 383 / 383 Weight 300 lb Microbiology Reports for the Last 24 Hours: Microbiology 11/23/20 21:50 Nasopharyngeal Coronavirus COVID-19 PCR - Final
--- NOTE | 2020-11-24 12:55 | PC.NURSE ---
PT DEMANDED TO LEAVE THE FLOOR SO HE COULD GO OUTSIDE AND FOR THIS NURSE TO REMOVE HIS IV. PT STATED THAT HE WOULD COME BACK TO THE FLOOR. OFF UNIT CONSENT SIGNED AND PLACED ON CHART. SPOKE TO DR. CONTEH WHO IS AWARE.
--- NOTE | 2020-11-25 06:36 | HMH.DCSUM ---
General - General Admission date:: 11/24/20 Discharge date: 11/24/20 HPI HPI: 45-year-old white male with obesity but otherwise minimal medical history who presented to the emergency department with right upper quadrant pain after eating. ER work-up with minimally elevated lipase but otherwise unremarkable except for a CT scan showing gallbladder neck stone. Admitted to hospital for pain control, n.p.o. status and surgical consultation. Hospital Course Hospital Course: Admiktted... US also showed stone in neck of gallbladder... pain controlled with diet restriction and pain rx. Surgery consulted. Recommended lap felicia - set up for 11/25/2020 - patient wished to be d'cd home and return in am... clear liquid diet was recommneded till next day. Objective Vital signs: Temp Pulse Resp BP Pulse Ox 98.4 F 66 18 136/76 100 11/24/20 08:00 11/24/20 08:00 11/24/20 08:00 11/24/20 08:00 11/24/20 08:00 no acute distress - *Routine HEENT Exam Head: Present: normocephalic Eye: Present: EOMI, PERRL ENT: Present: mucous membranes moist - *Routine Neck Exam Present: supple - *Routine Respiratory Exam Present: CTA bilaterally - *Routine Cardiovascular Exam Present: RRR - *Routine Abdominal Exam Present: soft, normoactive bowel sounds, tenderness Comments: Improved over admit - *Routine Extremities Exam Absent: cyanosis, clubbing, edema - *Routine Skin Exam Present: warm. Absent: rash - Detailed Eye Exam Eyelids: Bilateral normal inspection Results Labs on day of discharge: Labs from last 24 hours 11/24/20 11/24/20 11/24/20 08:20 05:54 05:54 WBC 10.5 RBC 5.59 Hgb 15.8 Hct 47.6 MCV 85.1 MCH 28.2 MCHC 33.2 RDW 14.4 Plt Count 216 MPV 8.5 Neut % (Auto) 63.6 Lymph % (Auto) 26.6 [place] % (Auto) 5.1 Eos % (Auto) 3.6 Baso % (Auto) 1.1 Neut # (Auto) 6.7 Lymph # (Auto) 2.8 [place] # (Auto) 0.5 Eos # (Auto) 0.4 Baso # (Auto) 0.1 PT 11.1 INR 0.94 Sodium 137 Potassium 4.2 Chloride 108 H Carbon Dioxide 23 Anion Gap 10.2 BUN 12 Creatinine 0.80 D Estimated Creat Clear 115 Estimated GFR 106 Est GFR ( Amer) 128 D Glucose 114 H D Calcium 9.2 Total Bilirubin 0.6 AST 86 H ALT 139 H Alkaline Phosphatase 118 Total Protein 7.5 Albumin 4.1 Globulin 3.4 H Albumin/Globulin Ratio 1.2 DS: Diagnosis - Discharge Diagnosis (1) Epigastric pain Status: Acute (2) Cholecystitis, acute with cholelithiasis Status: Acute Discharge Plan - Patient Discharge Instructions ACTIVITY: Continue current activity DIET: continue same diet Patient Instructions: Clear Liquid Diet, DI for Epigastric Pain - Follow up Plan Follow up with: Sb Gray MD [Staff Physician] - (surgery is scheduled for 1:00 11/25/2020. please plan to arrive by 11:30 for per-op. nothing to eat or drink after midnight 11/25/2020) Disposition: Home, Self-Long Term Medications: Home Medications Medication Instructions Recorded Confirmed Type No Known Home Medications 11/23/20 11/24/20 History Prescriptions/Medication Reconciliation: No Action No Known Home Medications - Problem Reconciliation Problems Reviewed?: Yes
== END 2020-11-24 13:30 | disposition home or self-care (01) ==
LOC: ER 20:29 → 2ND 21:59
PROVIDERS: Surgery; Admitting Provider Emergency Medicine; Emergency Provider Emergency Medicine; PCP Internal Medicine Adolescent Medicine; Visit Provider Internal Medicine Adolescent Medicine
DX: K80.10 Calculus of gallbladder with chronic cholecystitis without obstruction (principal)
CPT/HCPCS: 36415; 74177; 76705; 80053; 81001; 82150; 83690; 84145; 84484; 85025; 85610; 85651; 86140; 93005; 96365; 99284; G0378; Q9967; U0003

== ENCOUNTER 2020-11-25 11:09 | Day surgery (SDC) | payer OTHER, SELFPAY ==
[2020-11-25] VITALS (13 sets, daily range): BP systolic 109–166; BP diastolic 64–90; PULSE 70–87; RESP 14–18; TEMP 36.3–43; O2SAT 95–99; BMI 46.6
--- NOTE | 2020-11-25 12:18 | P.PN_ITS ---
[facility] Anesthesia Checklist - Patient Identification Patient Identification: Arm Band - Structural Data Admitted From: Home Planned Operative Procedure/s: Laparoscopic Cholecystectomy Consent for Planned Operative Procedure(s) Verified: Yes Verified Documents: Surgical Consent, History and Physical - Additional verifications Anesthesia Reactions: No Hx Blood Transfusions: No Blood Transfusion Reaction: No - Cardiovascular Assessment Heart Sounds: S1 & S2 Pulse Strength: Baseline Pulse Rhythm: Regular - Airway Assessment C-Spine Mobility Assessed: Yes TMJ Mobility Assessed: Yes Dentition: Poor Dentition - Neurological Assessment Level of Consciousness: Awake - Anesthesia Plan Anesthesia Risk discussed: Yes Anesthesia Plan: Verified ASA Class: II Anesthesia Type: General [facility] History I have reviewed the patient's past medical history: Yes Medical History: Denies:: Cancer, Diabetes Mellitus Type 1, Diabetes Mellitus Type 2, Internal Pacemaker, MRSA, Seizures *Have you ever received a pneumonia vaccine?: No *Have you received a flu vaccine this season?: No Other Medical History: Denies: Blood Transfusion Reaction Anesthesia experience/problems:: None Laterality Cases: Bilateral: Myringotomy (Ear Tubes) Other Surgeries: No: Pacemaker Amputation: No Fractures: No - *Social History Last grade of school completed: GED Smoking Status: Current every day smoker Tobacco Type: cigarettes # Packs/Day (cigarettes): 1 Alcohol Intake: never Substance Use Type: marijuana, crack/cocaine, heroin, opiates, methamphetamine *Occupational Status:: employed Housing: house Household Members: other *Travel in the last 8 weeks: None Family Hx:: No significant family history
--- NOTE | 2020-11-25 15:27 | HMH.OPNOTE ---
Date of procedure: 11/25/20 Pre-op Diagnosis:: Symptomatic gallstones, cholecystitis Post-op Diagnosis:: Same Procedure performed:: Laparoscopic cholecystectomy Surgeon:: Sb Gray MD SOLDER SPRAYER:: Other Anesthesia: CAITLIN Estimated blood loss (mL): 20 Clinical Note:: Patient is a 45-year-old male with known diagnosis of hepatitis C secondary to previous IV drug use. He states that he has been clean for over 2 years. He was in his usual state of health until a couple of days ago when he developed acute onset of epigastric pain. This became more severe on 11/23/2020 and he presented to the emergency department that evening. He underwent evaluation which included CT scan revealing findings of gallbladder wall thickening with stone in the neck of the gallbladder. He does have somewhat elevated transaminases which is consistent with his baseline. He was admitted to medicine service with surgical consultation yesterday morning. His symptoms improved dramatically. Options were discussed with the patient. Plan was made for discharge with cholecystectomy as an outpatient the following day. Operative findings:: He had some hepatomegaly and significant amount of thickened omentum. Gallbladder was distended and thickened with some edema in the surrounding tissues particularly the patrick hepatis. Operative note:: Patient was taken to the operating room. He was positioned in a supine position. General anesthesia was induced via endotracheal tube. Abdomen was prepped and draped in the standard surgical fashion. Subumbilical skin incision was made and while performing abdominal wall lift Veress needle was inserted. CO2 pneumoperitoneum was achieved to 15 mmHg. 11 mm optical trocar was inserted at the umbilicus. Intraperitoneal contents were visualized. He was positioned in reverse Trendelenburg left side down. A couple 5 mm trochars were inserted in the right upper abdomen. 10 mm trocar was inserted in the epigastrium. He had generous thickened omentum. This was swept inferiorly. The gallbladder was identified and grasped retracted anteriorly above the dome of the liver. There is some omental adhesions to the gallbladder which were taken down using blunt dissection. Gallbladder was thickened and quite elongated. Due to the patient's body habitus an additional 5 mm trocar was inserted in the right upper abdomen and a 5 mm fan retractor was inserted so as to visualize the neck of the gallbladder. This required use of a 10 mm 45 degree laparoscope. The infundibulum/Lawrence's pouch of the gallbladder was retracted anterolaterally. Blunt dissection was carried out at the neck of the gallbladder bluntly incising the visceral peritoneum. There was edema within the tissues. Dissection was carried out ultimately identifying the cystic duct. This was dissected free isolated and multiply clipped and then sharply divided. The cystic artery was carefully coagulated with ERICK ultrasonic harmonic criselda and divided. The gallbladder was dissected free from the liver in a retrograde fashion using ERICK ultrasonic harmonic criselda. The gallbladder was placed within an Endo Catch retrieval device and removed from the peritoneal cavity via the umbilical trocar site which required some extension of the fascial incision for delivery. Gallbladder fossa was then irrigated and aspirated until clear. There appeared to be good hemostasis. Trochars were removed as CO2 pneumoperitoneum was evacuated. Fascia at the umbilicus was closed with multiple interrupted 0 Vicryl sutures. Local anesthetic was infiltrated in all skin incisions. Skin incisions were closed with 4-0 Monocryl in a subcuticular fashion. Steri-Strips and dressings were applied. Condition: stable Disposition: PACU Specimens:: Gallbladder and contents Complications:: None immediately apparent
--- NOTE | 2020-11-25 15:36 | HMH.ANESI ---
[facility] Anesthesia Record Part I Intake, IV Amount: 1,000 Estimated blood loss (mL): 20 Urine output (mL): 0 Blood Pressure: 138/71 SaO2: 95 Pulse Rate: 81 Respiratory Rate: 14 Temperature: 97.5 F Patient is:: Awake Stable to PACU at:: 15:29
--- NOTE | 2020-11-26 10:25 | HMH.ANESII ---
[facility] Anesthesia Record Part II Discharge Time: 14:19 Destination: Surgical Day Care (OP Surgery) PACU nurse assessment reviewed?: Yes Patient Condition:: Good Anesthesia Complications:: None Swallowing reflex intact?: Yes Cyanosis?: No Blood Pressure: 121/58 Pulse Rate: 74 Temperature: 97.8 F Mental Status: Alert & Oriented Pain level:: 5 Nausea and/or vomitting:: None Intake, IV Amount: 0
[2020-11-26 10:26] VITALS: BP 121/58; PULSE 74; TEMP 36.6
== END 2020-11-25 16:55 | disposition home or self-care (01) ==
LOC: OR 11:10
PROVIDERS: PCP Internal Medicine Adolescent Medicine; Visit Provider Surgery
PROC: 0FT44ZZ Resection of Gallbladder, Percutaneous Endoscopic Approach (ICD-10-PCS; CPT 47562; principal; 2020-11-25 13:00)
DX: K80.00 Calculus of gallbladder with acute cholecystitis without obstruction (principal); K82.8 Other specified diseases of gallbladder; R16.0 Hepatomegaly, not elsewhere classified; E66.9 Obesity, unspecified; Z68.42 Body mass index [BMI] 45.0-49.9, adult; R60.1 Generalized edema; Z72.0 Tobacco use; F12.90 Cannabis use, unspecified, uncomplicated; F11.90 Opioid use, unspecified, uncomplicated; F15.90 Other stimulant use, unspecified, uncomplicated
CPT/HCPCS: 47562; 96374; J0131

== ENCOUNTER 2021-04-15 10:41 | Emergency (ER) | payer OTHER, SELFPAY ==
[2021-04-15 10:48] VITALS: BP 144/86; PULSE 75; RESP 19; TEMP 36.8; O2SAT 97; BMI 46.0
[2021-04-15 11:09] VITALS: BP 144/86; PULSE 75; RESP 19; TEMP 36.8
--- NOTE | 2021-04-15 11:12 | HMH.EDUTC ---
[facility] [place] [facility] [place] Clinical Impression: Bronchitis Sinusitis Qualifiers: Sinusitis location: unspecified location Chronicity: unspecified Qualified Code(s): J32.9 - Chronic sinusitis, unspecified Disposition: Home, Self-Care Condition on Discharge: Good Instructions: Sinusitis, DI for Sinusitis, Azithromycin, Prednisone, Benzonatate Additional Instructions: ? Start antibiotic today. Be sure to complete entire prescription even if feeling better ? Monitor temp. Tylenol every 4 hours as needed and / or ibuprofen every 6 hours as needed ( As long as your primary care physician has told you that it ok to take both. For fever/aches/pains ER if no less than 101 despite Tylenol or Motrin ? Humidifier/vaporizer or hot steamy shower ? Inhaler every 4-6 hours as needed like we discussed. If unsure how to use it, ask pharmacist to demonstrate how. Should help open airways and improve cough, wheezing, and shortness of breath ? Mucinex during the day for your cough and cough suppressant only at night. Be sure to drink lots of water. May be cheaper to get this over the counter and take Tessalon Perles at night *Tessalon Perles will not cause drowsiness but use at bedtime to help stop cough so that you may get some rest. *Start steroid today. Helps with inflammation therefore, cough and wheezing. Follow directions on the package. Reviewed side effects. Patient reports taking them before. Follow up IMMEDIATELY for new or worsening of symptoms OR no noticeable improvement over the next 48-72 hours. 911 immediately for any life threatening symptoms such as chest pain or difficulty breathing Prescriptions: Albuterol Sulfate [Proventil-HFA 90mcg/puff Inh] 1 - 2 puffs IH Q4HP PRN #1 inh PRN Reason: Shortness Of Breath Transmission Status: [facility] predniSONE [Prednisone 20mg Tab] 20 mg PO BID 5 Days #10 tab Transmission Status: [facility] Benzonatate [Tessalon Perle 100mg Cap*] 100 mg PO TID PRN #30 cap PRN Reason: Cough Transmission Status: [facility] Azithromycin [Z-Jovanni 250mg Tab] 250 mg PO DIRECTED #6 tab Transmission Status: Pending to [facility] Referrals: Richar Fonseca MD [Primary Care Provider] - As needed Medical Decision Making - David Inquiry Pt receiving controlled substance: No David was queried for this patient: No Vital Signs: 04/15/21 10:48 Temperature 98.3 F Temperature Source Oral Pulse Rate [Right] 75 Respiratory Rate 19 Blood Pressure [Right Arm] 144/86 H Blood Pressure Mean [Right Arm] 105 02 Sat by Pulse Oximetry 97 Medical Decision Narrative: Patient states that he has taken azithromycin and prednisone in the past without reactions or complications [facility] [place] [facility] [place] HPI - General Stated complaint: head cold Time Seen by Provider: 04/15/21 11:12 Mode of Arrival: Ambulatory Source of Information: Patient Limitations: No Limitations Description of Symptoms (Recalled from Triage Doc. by RN): nonproductive cough, sinus pressure and BATISTA for three days. HEENT Symptoms (Recalled from RN notes): Yes (BATISTA and sinus pressure) Resp Symptoms (Recalled from RN notes): Yes (cough) Skin Symptoms (Recalled from RN notes): No MS Symptoms (Recalled from RN notes): No Functional Status (Recalled from RN notes): na - History of Present Illness Provider Complaint: Patient states that she has had a nagging cough, sinus pain and pressure, pressure feeling behind his eyes, sore throat and drainage for over a week that has got worse over the last few days States that today he came in to get checked thinking he had a sinus infection - Related Data Previous Rx's Medication Instructions Recorded Albuterol Sulfate [Proventil-HFA 1 - 2 puffs IH Q4HP PRN #1 inh 04/15/21 90mcg/puff Inh] Azithromycin [Z-Jovanni 250mg Tab] 250 mg PO DIRECTED #6 tab 04/15/21 Benzonatate [Tessalon Perle 100mg 100 mg PO TID PRN #30 cap 04/15/21 Cap*] pre
== END 2021-04-15 11:24 | disposition home or self-care (01) ==
PROVIDERS: Emergency Provider Nurse Practitioner; PCP Internal Medicine Adolescent Medicine
DX: J20.9 Acute bronchitis, unspecified (principal); J32.9 Chronic sinusitis, unspecified
CPT/HCPCS: 99202; G0463

== ENCOUNTER 2022-06-11 15:20 | Emergency (ER) | payer SELFPAY ==
[2022-06-11 16:02] VITALS: BP 149/92; PULSE 104; RESP 16; TEMP 37; O2SAT 96; BMI 47.8
--- NOTE | 2022-06-11 16:05 | EXP.UTC ---
Discharge Plan Disposition Patient Disposition: Home, Self-Care Condition: Good Prescriptions Prescriptions: New cephalexin [cephalexin] 500 mg capsule 500 mg PO Q6H 10 Days Qty: 40 0RF mupirocin 2 % ointment 1 applic topical TID 7 Days Qty: 22 0RF No Action azithromycin 250 MG tablet 250 mg PO DIRECTED Qty: 6 0RF Rx Instructions: Take two (2) tablets on day #1, then one (1) tablet day #2 thru #5 prednisone 20 MG tablet 20 mg PO BID 5 Days Qty: 10 0RF benzonatate 100 MG capsule 100 mg PO TID PRN (Reason: Cough) Qty: 30 0RF albuterol sulfate 200 PUFFS HFA aerosol inhaler 1 - 2 puffs IH Q4HP PRN (Reason: Shortness Of Breath) Qty: 1 0RF Referrals Follow up/Referrals: Richar Fonseca MD [Primary Care Provider] - See instructions Activity Restrictions/Add. Instructions Additional Instructions/Restrictions: Keep the wounds clean and dry. Follow up with your regular doctor. Take the antibiotics as directed and apply the topical antibiotics as directed. Watch the site for signs of worsening infection, such as worsening redness, drainage, swelling, etc. GO TO THE ER FOR ANY WORSENING SYMPTOMS Clinical Impressions Clinical Impression: Abscess Instructions Patient Instructions: DI for Incision and Drainage of a Skin Abscess, DI for Skin Abscess Discharge ED Provider: Tito Olsen [facility] General Stated complaint: Cyst on back Time Seen by Provider: 06/11/22 16:05 History of Present Illness Provider Complaint: He has a swollen red area on his upper back. In the past he has had a cyst in this area that had to be drained. He denies any fever or chills. Related Data Previous Rx's Medication Instructions Recorded albuterol sulfate 90 mcg/actuation 1 - 2 puffs IH Q4HP PRN Shortness 04/15/21 aerosol inhaler Of Breath #1 inh azithromycin 250 mg tablet 250 mg PO DIRECTED #6 tabs 04/15/21 benzonatate 100 mg capsule 100 mg PO TID PRN Cough #30 caps 04/15/21 prednisone 20 mg tablet 20 mg PO BID 5 days #10 tabs 04/15/21 cephalexin 500 mg capsule 500 mg PO Q6H 10 days #40 caps 06/11/22 mupirocin 2 % topical ointment 1 applic topical TID 7 days #22 06/11/22 grams Allergies Allergy/AdvReac Type Severity Reaction Status Date / Time No Known Allergies Allergy Verified 06/11/22 16:08 [facility] Social History Smoking Status: Current every day smoker tobacco type: cigarettes packs per day: 1 alcohol intake: never substance use type: marijuana, crack/cocaine, heroin, opiates and methamphetamine current occupational status: employed Travel in the last 8 weeks: None household members: other housing: house caffeine: Yes ROS Obtained: Yes All systems reviewed & no additional complaints except as documented Constitutional Constitutional: Reports system reviewed and no additional complaints, except as documented, Denies chills and Denies fever(s) Eyes Eyes: Denies eye discharge ENT Ears, Nose, Mouth, and Throat: Denies dysphagia, Denies sore throat and Denies throat swelling Cardiovascular Cardiovascular: Denies chest pain and Denies dyspnea Respiratory Respiratory: Denies chest congestion, Denies cough and Denies dyspnea Gastrointestinal Gastrointestingal: Denies abdominal pain, constipation, diarrhea, dysphagia, nausea or vomiting Musculoskeletal Musculoskeletal: Denies arthralgias Integumentary/Breasts Skin/Breast: Reports redness and Reports furuncle Neurologic Neurologic: Denies paresthesias Allergic/Immunologic Allergic/Immunologic: Denies throat swelling Physical Exam General General appearance: alert and in no apparent distress Head Head exam: atraumatic, normocephalic and normal inspection Eye Eye exam: Present normal appearance, PERRL and EOMI ENT ENT exam: Present normal exam, normal oropharynx, mucous membranes moist, TM's normal bilaterally and normal external ear exam
[2022-06-11 17:23] VITALS: BP 149/92; PULSE 104; RESP 16; TEMP 37
== END 2022-06-11 17:26 | disposition home or self-care (01) ==
PROVIDERS: Emergency Provider Nurse Practitioner Family; PCP Internal Medicine Adolescent Medicine
DX: L02.212 Cutaneous abscess of back [any part, except buttock and flank] (principal)
CPT/HCPCS: 10060; 99213; G0463

== ENCOUNTER 2024-07-23 23:52 | Emergency (ER) | payer OTHER, SELFPAY ==
[2024-07-23 23:53] VITALS: BP 169/107; PULSE 89; RESP 20; TEMP 36.9; O2SAT 96; BMI 44.0
[2024-07-24] MEDS: LIDOCAINE 1% 5ML PF VIAL 5 ML IJ (00:27)
[2024-07-24] MEDS: SULFA/TRIMETHOPRIM 1 TABLET 1 EACH PO (00:32)
--- NOTE | 2024-07-24 00:33 | PC.NURSE ---
Dr. Mendoza at bedside with POCUS on scrotum. Ene Santos RN also at bedside as is pt's
--- NOTE | 2024-07-24 00:42 | PC.NURSE ---
Dr. Mendoza at bedside for I & D procedure. Concept form signed.
--- NOTE | 2024-07-24 00:46 | ED_ITS ---
Discharge Plan Disposition Patient Disposition: Home, Self-Care Condition: Good Prescriptions Prescriptions: New sulfamethoxazole-trimethoprim 800-160 mg tablet 1 tab PO BID 7 Days Qty: 14 0RF bacitracin 500 unit/gram ointment 1 applic topical TID Qty: 28 0RF No Action albuterol sulfate 200 PUFFS HFA aerosol inhaler 1 - 2 puffs IH Q4HP PRN (Reason: Shortness Of Breath) Qty: 1 0RF Referrals Follow up/Referrals: Kleber Espinal MD [Staff Physician] - See instructions (abscess of superficial tissue of scrotum, follow up to re-evaluate scrotal healing and testicle) Richar Fonseca MD [Primary Care Provider] - See instructions Activity Restrictions/Add. Instructions Additional Instructions/Restrictions: You were evaluated in the ER and are appropriate for discharge at this time. Take the prescribed oral antibiotics as directed, do not skip doses, do not stop taking them early. Use the prescribed bacitracin ointment 3 times daily on the wound. Keep the wound clean and dry. It will also help to take sitz baths at least twice daily to improve healing and reduce risk of re-infection. Keep a clean dressing over the wound as you were shown. Follow-up with your primary care doctor as well as with the urologist in a few days for reevaluation. Please immediately return to the ER with any new, worsening, or otherwise concerning symptoms including but not limited to worsening pain, swelling, worsening findings of infection, fever. Clinical Impressions Clinical Impression: Abscess Instructions Patient Instructions: DI for Skin Abscess Print Language Print Language: [place] Citizen Discharge ED Provider: Junito Mendoza Adult [facility] General Chief complaint: Skin/Abscess/Foreign Body Stated complaint: abcess scrotum Time Seen by Provider: 07/24/24 00:05 Mode of Arrival: Family Vehicle Source of Information: Patient Limitations: No Limitations Description of Symptoms (Recalled from ER Triage Doc. by RN): Pt presents to ER with conerns of scrotal swelling, pain, and possible abscess. States he has hx of abscesses that required I&D and packing. He has 2 areas that are more swollen and feels like a abscess tract on the left side of his scrotum. Reports the bottom are is open and draining, and the top area is not draining. Pt has attempted to drain it at home with a needle wo success. States he has taken Ibumprofen 2,000mg today for pain control. History of Present Illness HPI narrative: 49-year-old male who reports no chronic medical problems but a history of abscesses presents to the ER for concerns of left scrotal skin swelling, pain, abscess. He states he has had abscess on the scrotum, thigh, back, and other places. He states he has had to have incision and drainage and antibiotics previously. He states 1 area seems to be draining well the other continues to be swollen and painful. He states he attempted to insert a needle at home without any improvement of symptoms. Patient reports he took ibuprofen for pain control without significant improvement of symptoms. He states he has had the swelling and pain for multiple weeks but it has not improved so he came to the ER tonight. Patient denies fevers, chills, chest pain, difficulty breathing, vomiting, diarrhea, sweats, or other associated symptoms. He has not had dysuria or hematuria. He does not have pain in the testicles, penis, or pelvic wall. Related Data Previous Rx's ?Medication ?Instructions ?Recorded albuterol sulfate 90 mcg/actuation 1 - 2 puffs IH Q4HP PRN Shortness 04/15/21 aerosol inhaler Of Breath #1 inh bacitracin 500 unit/gram topical 1 applic topical TID #28 grams 07/24/24 ointment sulfamethoxazole 800 1 tab PO BID 7 days #14 tabs 07/24/24 mg-trimethoprim 160 mg tablet Allergies Allergy/AdvReac Type Severity Reaction Status Date / Time No Known Allergies Allergy Verified 06/11/22 16:08 [facility] Disclaimer: The information contained in this section may have been updated after the patient was seen, as this information can be updated by other users. Social History Smoking Status: Current every day smoker tobacco type: cigarettes packs per day: 1 alcohol intake: never substance use type: marijuana, crack/cocaine, heroin, opiates and methamphetamine current occupational status: employed Travel in the last 8 weeks: None household members: other housing: house caffeine: Yes Other Medical History Have you received the Flu Vaccine for this season: No Have you received the Pneumonia Vaccine: No ROS Obtained: Yes Systems reviewed as appropriate & no additional complaints except as documented Positive ROS per HPI Physical Exam General General appearance: alert, in no apparent distress and obese Head Head exam: atraumatic and normocephalic Eye Eye exam: Present PERRL and EOMI ENT ENT exam: Present mucous membranes moist Neck Neck exam: Present normal inspection and full ROM Chest Chest inspection: Present symmetric chest wall rise Respiratory Respiratory exam: Absent respiratory distress or stridor Cardiovascular Cardiovascular exam: Present regular rate and normal rhythm Abdominal Exam Abdominal exam: Present soft; Absent distention or tenderness exam: Present scrotal swelling (Patient has a 4 cm area of indurated swelling of the superficial soft tissues of the anterior left hemiscrotum with associated erythema and area of fluctuance), normal testicular lie and other (No crepitus); Absent testicular tenderness or urethral discharge Extremities Exam Extremities exam: Present full ROM Neurological Exam Neurological exam: Present alert and oriented X3; Absent motor sensory deficit Psychiatric Psychiatric exam: Present normal affect and normal mood Skin Skin exam: Present warm and dry Medical Decision Making Medical Records Medical records reviewed: Yes I reviewed the patient's medical records. Screening: Per USPSTF and CDC recommendations, given the prevalence of disease in our region, it is our hospital?s policy to screen for HIV and viral Hepatitis for all patients aged 18 and over and those with ongoing risk factors. MR Comment: Patient has had multiple previous incision and drainage, he has previously been prescribed Keflex, mupirocin for treatment of abscesses. David Inquiry Pt receiving controlled substance: No Vital Signs: 07/23/24 23:53 Temperature 98.5 F Temperature Source Oral Pulse Rate [Right] 89 Respiratory Rate 20 Blood Pressure [Right Arm] 169/107 H Blood Pressure Mean [Right Arm] 127 Blood Pressure Source [Right Arm] Automatic Cuff 02 Sat by Pulse Oximetry 96 Oxygen Delivery Method Room Air Orders (Tests/Meds): ED MEDICATIONS Discontinued Medications Generic Name Dose Route Start Last Admin Trade Name Freq PRN Reason Stop Dose Admin Lidocaine HCl 5 ml 07/24/24 00:27 07/24/24 00:27 Lidocaine 1% 5ml Pf Vial IJ 07/24/24 00:28 5 ml ONCE ONE Administration Trimethoprim/Sulfamethoxazole 1 each 07/24/24 00:27 07/24/24 00:32 Sulfa/Trimethoprim 1 Tablet PO 07/24/24 00:28 1 each ONCE ONE Administration ORDERS Category Date Time Status POCUS Point of Care (ER Only) Stat Exams 07/24/24 00:13 Ordered Wound Culture and Gram Stain Stat Micro 07/24/24 00:44 Ordered Medical Decision Narrative: In summary, this 49-year-old male presents to the emergency department today with left scrotal pain, swelling, abscess. On initial evaluation patient is hemodynamically stable, afebrile, patient has an area of induration, erythema, and fluctuance on the left anterior superficial hemiscrotum without any testicular pain, no epididymal pain, no abnormalities of the penis or the surrounding tissues. Differential diagnosis includes but is not limited to abscess, cellulitis, I considered NSTI however patient has had symptoms for weeks without any rapid progression, no fevers or other systemic symptoms. Ultrasound personally performed and interpreted demonstrates abscess with associated cellulitis. Incision and drainage was performed, see procedure note for details. Wound culture was collected. Patient received Bactrim in the ER for coverage of MRSA given the obvious purulent abscess and has history of recurrent abscesses. I prescribed Bactrim and bacitracin for outpatient management. 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 I also gave him instructions on follow-up, strict return precautions for the ER. He indicated understanding and the patient was discharged in stable condition Procedures Risk/Benefits of Procedure(s) Were Explained: Yes Abscess I/D Site: scrotum Side (if applicable): left Local Anesthetic: lidocaine 1% Amount of anesthesia used (mL): 3 Technique: incised with #11 blade (Area cleaned with iodine prior to incision; deloculated and irrigated, 1cm incision) Amount of fluid expressed (mL): 3 Irrigation: Yes (60 mL sterile saline with pressure irrigation) Packing used?: none Complications: other (No complications, patient tolerated procedure well. Improved symptoms after procedure.) Miscellaneous Procedure Procedure Performed: Indication: Soft tissue redness, pain, swelling Identified structures: Left hemiscrotum anterior superficial tissues Location: Left scrotum Findings: 1-1.5 cm abscess with associated cellulitis, does not impact the deeper structures including the cord, blood vessels, or testicle No subcutaneous air Impression: Abscess and cellulitis Images were saved saved to the permanent archive. The study was technically adequate. Soft tissue CPT codes Neck: 45186-47 Upper extremity: 17664-48 Axilla: 02367-15 Chest wall: 82684-44 Breast: 40096-06 (complete), 98768-40-[RT/LT] (limited) Upper back: 24166-94 Abdominal wall: 56738-48 Pelvic wall: 97759-16 Lower extremity: 55185-80 Other soft tissue: 34545-16 This study was performed by me, and I personally interpreted all images/videos. Based on my clinical judgment, these images were adequate and did not necessitate further imaging. Critical Care Critical Care Time Critical Care Time: No
[2024-07-24 01:06] VITALS: BP 155/96; PULSE 78; RESP 20; TEMP 36.9; O2SAT 97
--- NOTE | 2024-07-25 08:41 | PC.NURSE ---
discussed wound culture with , pt dc with bactrim, ntd
== END 2024-07-24 01:06 | disposition home or self-care (01) ==
PROVIDERS: Emergency Provider Emergency Medicine; PCP Internal Medicine Adolescent Medicine
DX: L02.91 Cutaneous abscess, unspecified (principal); N50.82 Scrotal pain; N49.2 Inflammatory disorders of scrotum
CPT/HCPCS: 55100; 87070; 87077; 87186; 87205; 99283

== ENCOUNTER 2024-07-28 06:53 | Outpatient (CLI) | payer OTHER, SELFPAY ==
[2024-07-28 09:04] LABS: Basophils # 0.1 K/mm3 (0-0.2); Basophils % 1.3 % (0.1-2.0); Eosinophils # 0.5 K/mm3 (0.0-0.4); Eosinophils % 4.4 % (0.1-12.0); Hemoglobin 17.3 g/dL (14.1-18.0); Lymphocytes % 28.3 % (10-50); Mean Corpuscular HGB Conc 33.3 g/dL (31.8-35.4); Mean Corpuscular Hemoglobin 28.9 pg (27.0-31.2); Mean Corpuscular Volume 86.9 fl (80-94); Mean Platelet Volume 9.2 fl (7.4-10.4); Monocytes # 0.5 K/mm3 (0.1-1.0); Neutrophils # 6.4 K/mm3 (1.8-7.8); Platelet Count 196 K/mm3 (142-424); Red Blood Count 5.98 M/mm3 (4.60-6.20); Red Cell Distribution Width 14.6 % (11.5-17.5); White Blood Count 10.5 K/mm3 (4.8-10.8)
[2024-07-28 10:00] LABS: Alanine Aminotransferase 126 U/L (12-78); Albumin Level 4.1 g/dl (3.5-5.0); Albumin/Globulin Ratio 1.1 (1.1-1.8); Alkaline Phosphatase 115 U/L (38-126); Anion Gap 14.9 mEq/L (5-15); Aspartate Amino Transferase 85 U/L (17-59); Bilirubin,Total 0.9 mg/dl (0.2-1.3); Blood Urea Nitrogen 14 mg/dl (9-20); Calcium 9.2 mg/dl (8.4-10.2); Carbon Dioxide 20 mmol/L (22.0-30.0); Chloride 108 mmol/L (98-107); Cholesterol 211 mg/dl (140-200); Estimated Glomerular Filt Rate 80 ml/min (>60); GFR (African American) 97 ML/MIN (>60); Globulin 3.7 g/dL (1.3-3.2); Glucose 119 mg/dl (74-100); HDL Cholesterol 30 mg/dl (40-60); Potassium 4.9 mmoL/L (3.5-5.1); Sodium 138 mmol/L (136-145); Total Protein,Serum 7.8 g/dl (6.3-8.2); Triglycerides 99 mg/dl (30-150); VLDL Cholesterol 20 mg/dL (0-40)
[2024-07-28 10:11] LABS: Direct LDL Cholesterol 166.23 mg/dL (100-129)
[2024-07-28 10:31] LABS: Thyroid Stimulating Hormone 3.42 uIU/mL (0.465-4.68)
[2024-07-28 10:57] LABS: Hemoglobin A1C 6.4 % (4.0-6.0)
[2024-08-01 14:31] LABS: HBsAg Screen Negative (Negative); HCV Ab Reactive (Non Reactive); Hep A Ab, IGM Negative (Negative); Hep B Core Ab, IgM Negative (Negative)
== END 2024-07-28 23:59 | disposition home or self-care (01) ==
LOC: LAB 06:58
PROVIDERS: PCP Internal Medicine Adolescent Medicine; Visit Provider Nurse Practitioner Family
DX: Z00.00 Encounter for general adult medical examination without abnormal findings (principal); I10 Essential (primary) hypertension; R73.9 Hyperglycemia, unspecified; R74.8 Abnormal levels of other serum enzymes; Z68.42 Body mass index [BMI] 45.0-49.9, adult; L02.91 Cutaneous abscess, unspecified
CPT/HCPCS: 36415; 80050; 80053; 80061; 80074; 83036; 84443; 85025

== ENCOUNTER 2024-09-15 04:45 | Emergency (ER) | payer OTHER, SELFPAY ==
[2024-09-15 04:46] VITALS: BP 178/104; RESP 18; TEMP 36.5; O2SAT 95; BMI 46.6
--- NOTE | 2024-09-15 05:06 | CT_ITS ---
PROCEDURE INFORMATION: Exam: CT Abdomen And Pelvis With Contrast Exam date and time: 09/15/2024 5:27 AM Age: 49 years old Clinical indication: Pain; Other: Testicle abscess, ; additional info: Testicle abscess, pre-diabetic, R/O nsti TECHNIQUE: Imaging protocol: Computed tomography of the abdomen and pelvis with contrast. Radiation optimization: All CT scans at this facility use at least one of these dose optimization techniques: automated exposure control; mA and/or kV adjustment per patient size (includes targeted exams where dose is matched to clinical indication); or iterative reconstruction. Contrast material: ISOVUE; Contrast volume: 75 ml; Contrast route: IV; COMPARISON: CT ABDOMEN PELVIS W CON 11/23/2020 8:54 PM FINDINGS: Liver: Normal. No mass. Gallbladder and biliary ducts: There has been a cholecystectomy. There is no evidence of biliary ductal dilation. Pancreas: Normal. No ductal dilation. Spleen: Normal. No splenomegaly. Adrenal glands: Normal. No mass. Kidneys and ureters: Normal. No hydronephrosis. Stomach and bowel: There is no evidence of intestinal perforation or obstruction. Diverticulosis without diverticulitis. Appendix: A normal appendix is identified. Intraperitoneal space: Unremarkable. No free air. No significant fluid collection. Vasculature: Mild atherosclerotic changes of the aorta and branch vessels. Lymph nodes: Unremarkable. No enlarged lymph nodes. Urinary bladder: The bladder is decompressed. Reproductive: No abnormal fluid collection within the scrotum. Bones/joints: Left iliac bone island. Soft tissues: Induration within the subcutaneous tissues and skin surface involving the left anterior pelvic wall, may be related to injection. Surgical clips associated with bilateral inguinal canals. 4.5 x 4.1 cm thick walled heterogeneous fluid collection within the perineum just posterior to the right scrotum, concerning for abscess. No soft tissue gas. IMPRESSION: 4.5 x 4.1 cm thick walled heterogeneous fluid collection within the perineum just posterior to the right scrotum, concerning for abscess.
[2024-09-15] MEDS: KETOROLAC 30MG/ML VIAL 15 MG IV (05:12)
[2024-09-15 05:17] LABS: Basophils # 0.1 K/mm3 (0-0.2); Basophils % 0.9 % (0.1-2.0); Eosinophils # 0.4 K/mm3 (0.0-0.4); Eosinophils % 3.7 % (0.1-12.0); Hematocrit 46.8 % (42.0-52.0); Hemoglobin 15.9 g/dL (14.1-18.0); Lymphocytes # 3.2 K/mm3 (0.7-4.5); Lymphocytes % 27.9 % (10-50); Mean Corpuscular Hemoglobin 28.7 pg (27.0-31.2); Mean Corpuscular Volume 84.5 fl (80-94); Mean Platelet Volume 10.8 fl (7.4-10.4); Monocytes # 0.7 K/mm3 (0.1-1.0); Monocytes % 6.3 % (1.7-9.3); Neutrophils % 60.9 % (37.0-80.0); Platelet Count 185 K/mm3 (142-424); Red Blood Count 5.54 M/mm3 (4.60-6.20); Red Cell Distribution Width 13.9 % (11.5-17.5); White Blood Count 11.5 K/mm3 (4.8-10.8)
[2024-09-15 05:25] LABS: Albumin Level 3.7 g/dl (3.5-5.0); Chloride 109 mmol/L (98-107); Sodium 136 mmol/L (136-145)
[2024-09-15 05:26] LABS: Potassium 3.9 mmoL/L (3.5-5.1)
[2024-09-15 05:27] LABS: Blood Urea Nitrogen 14 mg/dl (9-20); Creatinine Clearance Estimated 105 mL/min (50-200); Estimated Glomerular Filt Rate 90 ml/min (>60); GFR (African American) 109 ML/MIN (>60)
[2024-09-15 05:28] LABS: Alanine Aminotransferase 118 U/L (12-78); Albumin/Globulin Ratio 1.1 (1.1-1.8); Alkaline Phosphatase 100 U/L (38-126); Anion Gap 7.9 mEq/L (5-15); Aspartate Amino Transferase 80 U/L (17-59); Bilirubin,Total 0.7 mg/dl (0.2-1.3); Calcium 9.1 mg/dl (8.4-10.2); Carbon Dioxide 23 mmol/L (22.0-30.0); Globulin 3.4 g/dL (1.3-3.2); Glucose 158 mg/dl (74-100); Total Protein,Serum 7.1 g/dl (6.3-8.2)
[2024-09-15 05:30] LABS: INR 0.95 (0.9-1.1); Prothrombin Time 10.7 seconds (10.1-12.5)
[2024-09-15 05:31] LABS: Hemoglobin A1C 6.3 % (4.0-6.0)
[2024-09-15 05:42] LABS: C-Reactive Protein 12.2 mg/L (0-4)
[2024-09-15] MEDS: SODIUM CHLORIDE 0.9% 10ML SYR (RAD ONLY) 10 ML IV (05:48)
[2024-09-15] MEDS: IOPAMIDOL-370 (76%);100ML BOTTLE 75 ML IV (05:48)
--- NOTE | 2024-09-15 06:04 | ED_ITS ---
Discharge Plan Disposition Patient Disposition: Home, Self-Care Prescriptions Prescriptions: New sulfamethoxazole-trimethoprim [Bactrim] 400-80 mg tablet 1 tab PO BID 7 Days Qty: 14 0RF No Action albuterol sulfate 200 PUFFS HFA aerosol inhaler 1 - 2 puffs IH Q4HP PRN (Reason: Shortness Of Breath) Qty: 1 0RF sulfamethoxazole-trimethoprim 800-160 mg tablet 1 tab PO BID 7 Days Qty: 14 0RF bacitracin 500 unit/gram ointment 1 applic topical TID Qty: 28 0RF Referrals Follow up/Referrals: Richar Fonseca MD [Primary Care Provider] - See instructions Activity Restrictions/Add. Instructions Additional Instructions/Restrictions: At this time it was felt you are safe to be discharged home. If new or worsening symptoms please do not hesitate to return the emergency department. As discussed your CAT scan was pending at time of discharge today, if there is more serious pathology happening you will get a call from me. Otherwise take your antibiotics as prescribed. Please follow-up with your family doctor to ensure resolution within the next week. Clinical Impressions Clinical Impression: Abscess of scrotal wall Instructions Patient Instructions: DI for Skin Abscess Print Language Print Language: Kittitian Discharge ED Provider: Junito Mendoza General Adult HPI <Junito Mendoza MD - Last Filed: 09/15/24 07:14> General Chief complaint: Skin/Abscess/Foreign Body Stated complaint: abscess on R testicle Time Seen by Provider: 09/15/24 04:59 Mode of Arrival: Ambulatory Source of Information: Patient Limitations: No Limitations Description of Symptoms (Recalled from ER Triage Doc. by RN): Patient ambulatory to ED with complaints of right testicular abscess. Patient states area became red and inflamed approx 2 days ago, and continues to get worse. Patient with persistant abscess history, and this issue occurs frequently according to patient. Patient afebrile at triage. complains of 15/10 pain and difficulty walking. History of Present Illness HPI narrative: 49-year-old male who is a prediabetic and has history of recurrent abscesses presents to the ER with complaints of right testicular abscess. Patient states he just got back from an over the road my[place] trip and 2 days ago suddenly had pain and redness starting in the right testicle. He hoped it would go away but it seems to have rapidly progressed, more so than his other previous abscesses. Patient states he does not have any fevers, chills, chest pain, difficulty breathing, nausea, vomiting, diarrhea, or other associated symptoms at this time. He states he is not having any dysuria, hematuria, or difficulty urinating. He complains of severe pain especially with walking. He states his symptoms are like his other abscesses but they have been more painful and more rapidly progressive than in the past. I evaluated this patient approximately in July and he was treated with Bactrim and mupirocin. He states his symptoms of the abscess which was on the left testicle at that time resolved, however the symptoms started 2 days ago on the other side. He states he has been taking ibuprofen. 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 Related Data Previous Rx's ?Medication ?Instructions ?Recorded albuterol sulfate 90 mcg/actuation 1 - 2 puffs IH Q4HP PRN Shortness 04/15/21 aerosol inhaler Of Breath #1 inh bacitracin 500 unit/gram topical 1 applic topical TID #28 grams 07/24/24 ointment sulfamethoxazole 800 1 tab PO BID 7 days #14 tabs 07/24/24 mg-trimethoprim 160 mg tablet sulfamethoxazole 400 1 tab PO BID abscess 7 days #14 09/15/24 mg-trimethoprim 80 mg tablet tabs (Bactrim) Allergies Allergy/AdvReac Type Severity Reaction Status Date / Time No Known Allergies Allergy Verified 06/11/22 16:08 [facility] <Junito Mendoza MD - Last Filed: 09/15/24 07:14> [facility] Disclaimer: The information contained in this section may have been updated after the patient was seen, as this information can be updated by other users. Social History Smoking Status: Current every day smoker tobacco type: cigarettes packs per day: 1 alcohol intake: never substance use type: marijuana, crack/cocaine, heroin, opiates and methamphetamine current occupational status: employed Travel in the last 8 weeks: None household members: other housing: house caffeine: Yes Have you lived/traveled outside [place] in past 30 days?: No Contact w/someone who lives/traveled outside US past 30 days?: No Exposure to someone with infectious disease in past 14 days?: Yes Do you have a fever (greater than 100.4 F or 38 C)?: No Have you tested positive for COVID-19: No Exposed to someone with COVID-19 in past 14 days?: No Do you have a sore throat?: No Do you have a cough?: No Do you have any weakness?: No Do you have any diarrhea?: No Are you experiencing any unusual bleeding?: No Do you have any muscle aches/pain?: No Do you have any abdominal pain?: No Are you experiencing loss of taste or smell?: No Other Medical History Have you received the Flu Vaccine for this season: No Have you received the Pneumonia Vaccine: No <Junito Mendoza MD - Last Filed: 09/15/24 07:14> ROS Obtained: Yes Systems reviewed as appropriate & no additional complaints except as documented Per HPI Physical Exam <Junito Mendoza MD - Last Filed: 09/15/24 07:14> General General appearance: alert and in no apparent distress Head Head exam: atraumatic and normocephalic Eye Eye exam: Present PERRL and EOMI ENT ENT exam: Present mucous membranes moist Neck Neck exam: Present normal inspection and full ROM Chest Chest inspection: Present symmetric chest wall rise Respiratory Respiratory exam: Present normal lung sounds bilaterally; Absent respiratory distress, wheezes or stridor Cardiovascular Cardiovascular exam: Present regular rate and normal rhythm Abdominal Exam Abdominal exam: Present soft; Absent distention, tenderness, guarding or rebound Comment: Patient is very small area of induration at the pants line superior to the pubis. No obvious fluctuance. exam: Present scrotal swelling (Right hemiscrotum swelling with induration and fluctuance. 2 cm diameter area of fluctuance, significant surrounding induration, severe tenderness with palpation of the skin, the testicles themselves are not tender) and other ([employer] present); Absent testicular tenderness or urethral discharge Extremities Exam Extremities exam: Present full ROM Neurological Exam Neurological exam: Present alert and oriented X3; Absent motor sensory deficit Psychiatric Psychiatric exam: Present normal affect and normal mood Skin Skin exam: Present warm and dry Medical Decision Making <Junito Mendoza MD - Last Filed: 09/15/24 07:14> Medical Records Medical records reviewed: Yes I reviewed the patient's medical records. Screening: Per USPSTF and CDC recommendations, given the prevalence of disease in our region, it is our hospital?s policy to screen for HIV and viral Hepatitis for all patients aged 18 and over and those with ongoing risk factors. MR Comment: When patient was last evaluated in the ER at the beginning of July for similar complaints, he did not have leukocytosis. David Inquiry Pt receiving controlled substance: No Vital Signs: 09/15/24 04:46 Temperature 97.7 F Temperature Source Oral Respiratory Rate 18 Blood Pressure [Right Arm] 178/104 H Blood Pressure Mean [Right Arm] 128 Blood Pressure Source [Right Arm] Automatic Cuff Blood Pressure Position [Right Arm] Sitting 02 Sat by Pulse Oximetry 95 Oxygen Delivery Method Room Air Lab Data Lab Results 09/15/24 05:09: HIV Ag/Ab Combo Qual Negative 09/15/24 05:10: WBC 11.5 H, RBC 5.54, Hgb 15.9, Hct 46.8, MCV 84.5, MCH 28.7, MCHC 34.0, RDW 13.9, Plt Count 185, MPV 10.8 H, Neut % (Auto) 60.9, Lymph % (Auto) 27.9, [place] % (Auto) 6.3, Eos % (Auto) 3.7, Baso % (Auto) 0.9, Neut # (Auto) 7.0, Lymph # (Auto) 3.2, [place] # (Auto) 0.7, Eos # (Auto) 0.4, Baso # (Auto) 0.1, PT 10.7, INR 0.95, Sodium 136, Potassium 3.9, Chloride 109 H, Carbon Dioxide 23, Anion Gap 7.9, BUN 14, Creatinine 0.90, Estimated Creat Clear 105, Estimated GFR 90, Est GFR ( Amer) 109, Glucose 158 H, Hemoglobin A1c 6.3 H, Calcium 9.1, Total Bilirubin 0.7, AST 80 H, ALT 118 H, Alkaline Phosphatase 100, C-Reactive Protein 12.2 H, Total Protein 7.1, Albumin 3.7, Globulin 3.4 H, Albumin/Globulin Ratio 1.1 09/15/24 05:10 09/15/24 05:10 Orders (Tests/Meds): ED MEDICATIONS Generic Name Dose Route Start Last Admin Trade Name Freq PRN Reason Stop Dose Admin Sodium Chloride 10 ml 09/15/24 05:47 09/15/24 05:48 Sodium Chloride 0.9% 10ml Syr (Rad Only) IV 10/15/24 05:46 10 ml NEEDED PRN Administration Maintain IV Site Discontinued Medications Generic Name Dose Route Start Last Admin Trade Name Natalya PRN Reason Stop Dose Admin Iopamidol 75 ml 09/15/24 05:47 09/15/24 05:48 Iopamidol-370 (76%);100ml Bottle IV 09/15/24 05:48 75 ml ONCE ONE Administration Ketorolac Tromethamine 15 mg 09/15/24 05:06 09/15/24 05:12 Ketorolac 30mg/Ml Vial IV 09/15/24 05:07 15 mg ONCE ONE Administration ORDERS Category Date Time Status CT abdomen pelvis w con Stat Cat Scan 09/15/24 05:06 Taken CBC w/Auto Diff [Complete Blood Count Auto Diff] Stat Lab 09/15/24 05:10 Completed CMP [Comprehensive Metabolic Panel] Stat Lab 09/15/24 05:10 Completed CRP [C-Reactive Protein] Stat Lab 09/15/24 05:10 Completed HIV Combo Routine Lab 09/15/24 05:09 Completed Hemoglobin A1C Stat Lab 09/15/24 05:10 Completed PT INR [Prothrombin Time INR] Stat Lab 09/15/24 05:10 Completed Medical Decision Narrative: In summary, this 49-year-old male with comorbidities described in the HPI presents to the emergency department today with right scrotal swelling, pain, abscess. On initial evaluation patient is hemodynamically stable, afebrile, patient does have findings of abscess on the right hemiscrotum but also has significant surrounding induration that he reports has been progressing rapidly and is more painful than his infections typically are. No systemic symptoms. Remainder of exam reassuring. Differential diagnosis includes but is not limited to abscess, cellulitis, since patient is describing more rapid progression and worsened pain compared to usual, I am concerned for possible necrotizing fasciitis or deeper space infection. Based on these concerns, I ordered serum labs, CT imaging. Patient received Toradol for treatment and pain management in the ER. Labs personally reviewed demonstrate leukocytosis with WBC 11.5, no anemia, normal platelets, PT/INR normal, CMP nonactionable, he is mildly hyperglycemic and has an A1c of 6.3, CRP 12.2. This is reassuring against necrotizing infection since the CRP is not severely elevated however this marker cannot independently rule it out. CT abdomen pelvis personally interpreted demonstrates abscess on the left hemiscrotum, I do not appreciate obvious subcutaneous gas. Radiology read pending at the time of physician handoff. Patient handed off to Dr. Adams in stable condition pending radiology read for continued management and disposition. <Edmundo Adams MD - Last Filed: 09/15/24 07:47> Vital Signs: 09/15/24 04:46 Temperature 97.7 F Temperature Source Oral Respiratory Rate 18 Blood Pressure [Right Arm] 178/104 H Blood Pressure Mean [Right Arm] 128 Blood Pressure Source [Right Arm] Automatic Cuff Blood Pressure Position [Right Arm] Sitting 02 Sat by Pulse Oximetry 95 Oxygen Delivery Method Room Air Lab Data Lab Results 09/15/24 05:09: HIV Ag/Ab Combo Qual Negative 09/15/24 05:10: WBC 11.5 H, RBC 5.54, Hgb 15.9, Hct 46.8, MCV 84.5, MCH 28.7, MCHC 34.0, RDW 13.9, Plt Count 185, MPV 10.8 H, Neut % (Auto) 60.9, Lymph % (Auto) 27.9, [place] % (Auto) 6.3, Eos % (Auto) 3.7, Baso % (Auto) 0.9, Neut # (Auto) 7.0, Lymph # (Auto) 3.2, [place] # (Auto) 0.7, Eos # (Auto) 0.4, Baso # (Auto) 0.1, PT 10.7, INR 0.95, Sodium 136, Potassium 3.9, Chloride 109 H, Carbon Dioxide 23, Anion Gap 7.9, BUN 14, Creatinine 0.90, Estimated Creat Clear 105, Estimated GFR 90, Est GFR ( Amer) 109, Glucose 158 H, Hemoglobin A1c 6.3 H, Calcium 9.1, Total Bilirubin 0.7, AST 80 H, ALT 118 H, Alkaline Phosphatase 100, C-Reactive Protein 12.2 H, Total Protein 7.1, Albumin 3.7, Globulin 3.4 H, Albumin/Globulin Ratio 1.1 Orders (Tests/Meds): ED MEDICATIONS Generic Name Dose Route Start Last Admin Trade Name Freq PRN Reason Stop Dose Admin Sodium Chloride 10 ml 09/15/24 05:47 09/15/24 05:48 Sodium Chloride 0.9% 10ml Syr (Rad Only) IV 10/15/24 05:46 10 ml NEEDED PRN Administration Maintain IV Site Discontinued Medications Generic Name Dose Route Start Last Admin Trade Name Natalya PRN Reason Stop Dose Admin Iopamidol 75 ml 09/15/24 05:47 09/15/24 05:48 Iopamidol-370 (76%);100ml Bottle IV 09/15/24 05:48 75 ml ONCE ONE Administration Ketorolac Tromethamine 15 mg 09/15/24 05:06 09/15/24 05:12 Ketorolac 30mg/Ml Vial IV 09/15/24 05:07 15 mg ONCE ONE Administration ORDERS Category Date Time Status CT abdomen pelvis w con Stat Cat Scan 09/15/24 05:06 Taken CBC w/Auto Diff [Complete Blood Count Auto Diff] Stat Lab 09/15/24 05:10 Completed CMP [Comprehensive Metabolic Panel] Stat Lab 09/15/24 05:10 Completed CRP [C-Reactive Protein] Stat Lab 09/15/24 05:10 Completed HIV Combo Routine Lab 09/15/24 05:09 Completed Hemoglobin A1C Stat Lab 09/15/24 05:10 Completed PT INR [Prothrombin Time INR] Stat Lab 09/15/24 05:10 Completed Medical Decision Narrative: In summary, this 49-year-old male with comorbidities described in the HPI presents to the emergency department today with right scrotal swelling, pain, abscess. On initial evaluation patient is hemodynamically stable, afebrile, patient does have findings of abscess on the right hemiscrotum but also has significant surrounding induration that he reports has been progressing rapidly and is more painful than his infections typically are. No systemic symptoms. Remainder of exam reassuring. Differential diagnosis includes but is not limited to abscess, cellulitis, since patient is describing more rapid progression and worsened pain compared to usual, I am concerned for possible necrotizing fasciitis or deeper space infection. Based on these concerns, I ordered serum labs, CT imaging. Patient received Toradol for treatment and pain management in the ER. Labs personally reviewed demonstrate leukocytosis with WBC 11.5, no anemia, normal platelets, PT/INR normal, CMP nonactionable, he is mildly hyperglycemic and has an A1c of 6.3, CRP 12.2. This is reassuring against necrotizing infection since the CRP is not severely elevated however this marker cannot independently rule it out. CT abdomen pelvis personally interpreted demonstrates abscess on the left hemiscrotum, I do not appreciate obvious subcutaneous gas. Radiology read pending at the time of physician handoff. Patient handed off to Dr. Adams in stable condition pending radiology read for continued management and disposition. Edmundo Adams: Upon assumption of care patient was hemodynamically stable. Workup reviewed by me, hematologic labs are nonactionable slight leukocytosis 11.5 no ARLETH or critical electrolyte abnormality no evidence of coagulopathy CRP mildly elevated. CT imaging conducted and formal read pending at my assumption of care. Informal read visualized by me there appears to be a scrotal wall abscess. Upon repeat evaluation patient was wishing to leave prior to his read. Shared decision making discussion was had at bedside we will proceed with empiric drainage at this time with significant purulence output. Patient tolerated the procedure well and there were no immediate complications and he would like to be discharged with a course of Bactrim. He was instructed that if there was a deep space infection he will require surgery however he does not wish to wait for the final read at this time. He is able to understand, appreciate, reason through his decision to make an express choice having capacity. Patient was discharged in stable condition with CT pending. Patient will be prescribed a course of antibiotics with Bactrim which have worked for this type of abscess in the past for him. Procedure: Procedure performed by Edmundo Adams. Procedure performed was scrotal wall abscess incision and drainage. Location was right hemiscrotum. Wound was cleaned with chlorhexidine, numbed with approximately 4 cc of 1% lidocaine with epinephrine, partial anesthesia achieved. Area of significant fluctuance was lanced with an 11 blade superficially with expression of approximately 6 cc of hemopurulent material. Patient tolerated the procedure with difficulty. There were no immediate complications. Critical Care <Junito Mendoza MD - Last Filed: 09/15/24 07:14> Critical Care Time Critical Care Time: No
[2024-09-15 07:39] LABS: HIV Combo NEGATIVE (Negative)
[2024-09-15 07:55] VITALS: BP 134/92; PULSE 77; RESP 14; TEMP 36.7; O2SAT 98
--- NOTE | 2024-09-15 09:38 | PC.NURSE ---
dr weir speaking with pt about ct scan results
== END 2024-09-15 07:59 | disposition home or self-care (01) ==
PROVIDERS: Emergency Provider Emergency Medicine; PCP Internal Medicine Adolescent Medicine
DX: N49.2 Inflammatory disorders of scrotum (principal)
CPT/HCPCS: 74177; 80053; 83036; 85025; 85610; 86140; 87389; 96374; 99285; J1885; Q9967